=== PATIENT | male | born 1960 | race American Indian/Alaskan Native ===

== ENCOUNTER 2017-12-13 12:48 | Emergency (ER) | payer BC ==
[2017-12-13] MEDS ORDERED: NACL 0.9% 500 ML 500 ML IV ONE (13:52)
[2017-12-13] MEDS ORDERED: ZOFRAN IV ONE ×3 (13:52→18:03)
--- NOTE | 2017-12-13 14:07 | Emergency Department Report ---
ED General Adult HPI - General Chief complaint: Abdominal Pain Stated complaint: PAIN IN ABS AREA Time Seen by Provider: 12/13/17 13:53 Source: patient Mode of arrival: Ambulatory Limitations: No Limitations - History of Present Illness Initial comments: 57-year-old patient with a history of gastroesophageal reflux disease, hypertension, and coronary artery disease presents to the ER after being sent to the ER by his primary care physician secondary to his abdominal pain. Patient initially was evaluated by his PCP on Monday for this abdominal pain and had lab work which showed he was hypernatremic. Patient was reevaluated today and continued to complain of abdominal pain as well as intermittent vomiting as well as diarrhea and was told to come to the emergency department. Patient states that for the past 3 days he's had 4 episodes of vomiting. Patient denies any hematemesis. Patient denies any chest pain or shortness of breath. Patient states that pain is primarily in the epigastric region and does not radiate. - Related Data Home Medications Medication Instructions Recorded Confirmed Last Taken Aspirin [Aspirin BABY CHEW TAB] 81 mg PO QDAY 12/14/14 02/02/16 01/31/16 Clopidogrel [Plavix] 75 mg PO QDAY 12/14/14 02/02/16 01/31/16 ISOSORBIDE MONOnitrate [Imdur ER] 90 mg PO QDAY 12/14/14 02/05/16 02/05/16 04:00 amLODIPine [Norvasc] 10 mg PO DAILY 12/14/14 02/05/16 02/05/16 04:00 AtorvaSTATin [Lipitor] 10 mg PO QDAY 02/02/16 02/05/16 02/05/16 04:00 Diphenoxylate/Atropine [Lomotil] 1 tab PO Q4H PRN 02/02/16 02/02/16 Unknown Lisinopril [Zestril TAB] 10 mg PO QDAY 02/02/16 02/05/16 02/05/16 04:00 Carvedilol [Coreg] 3.125 mg PO BID 02/05/16 02/05/16 02/05/16 04:00 Fish Oil 1 cap PO DAILY 02/05/16 02/05/16 02/04/16 09:00 Previous Rx's Medication Instructions Recorded Last Taken Type oxyCODONE /ACETAMINOPHEN [Percocet 1 tab PO Q6HR PRN #30 tablet 02/05/16 Unknown Rx 5/325] Ciprofloxacin/Ciprofloxa HCl 500 mg PO BID 7 Days #14 tbmp.24hr 12/13/17 Unknown Rx [Ciprofloxacin ER 500 mg Tablet] Famotidine [Pepcid] 20 mg PO BID 30 Days #60 tablet 12/13/17 Unknown Rx HYDROcodone/APAP 5-325 [[place] 1 each PO Q4HR PRN #20 tablet 12/13/17 Unknown Rx 5/325] Ondansetron [Zofran TAB] 4 mg PO Q8HR PRN #20 tablet 12/13/17 Unknown Rx metroNIDAZOLE [Flagyl] 500 mg PO Q12HR 7 Days #14 tab 12/13/17 Unknown Rx Allergies Allergy/AdvReac Type Severity Reaction Status Date / Time No Known Allergies Allergy Unverified 10/30/14 07:23 ED Review of Systems ROS: Stated complaint: PAIN IN ABS AREA Other details as noted in HPI Constitutional: denies: chills, fever Eyes: denies: eye pain, eye discharge, vision change ENT: denies: ear pain, throat pain Respiratory: denies: cough, shortness of breath, wheezing Cardiovascular: denies: chest pain, palpitations Endocrine: no symptoms reported Gastrointestinal: abdominal pain, vomiting, diarrhea Genitourinary: denies: urgency, dysuria Musculoskeletal: denies: back pain, joint swelling, arthralgia Skin: denies: rash, lesions Neurological: denies: headache, weakness, paresthesias Psychiatric: denies: anxiety, depression Hematological/Lymphatic: denies: easy bleeding, easy bruising ED Past Medical Hx - Past Medical History Hx Hypertension: Yes (FOR 30 YRS, DR. WESLEY EVANS- PCP) Hx Heart Attack/AMI: Yes (2004) Hx Congestive Heart Failure: No Hx Diabetes: No Hx GERD: Yes Hx Asthma: No Hx COPD: No Hx HIV: No - Surgical History Hx Coronary Stent: No - Social History Smoking Status: Current Every Day Smoker - Medications Home Medications: Home Medications Medication Instructions Recorded Confirmed Last Taken Type Aspirin [Aspirin BABY CHEW TAB] 81 mg PO QDAY 12/14/14 02/02/16 01/31/16 History Clopidogrel [Plavix] 75 mg PO QDAY 12/14/14 02/02/16 01/31/16 History ISOSORBIDE MONOnitrate [Imdur ER] 90 mg PO QDAY 12/14/14 02/05/16 02/05/16 04: 00 History amLODIPine [Norvasc] 10 mg PO DAILY 12/14/14 02/05/16 02/05/16 04:00 History AtorvaSTATin [Lipitor] 10 mg PO QDAY 02/02/16 02/05/16 02/05/16 04:00 History Diphenoxylate/Atropine [Lomotil] 1 tab PO Q4H PRN 02/02/16 02/02/16 Unknown History Lisinopril [Zestril TAB] 10 mg PO QDAY 02/02/16 02/05/16 02/05/16 04:00 History Carvedilol [Coreg] 3.125 mg PO BID 02/05/16 02/05/16 02/05/16 04:00 History Fish Oil 1 cap PO DAILY 02/05/16 02/05/16 02/04/16 09:00 History oxyCODONE /ACETAMINOPHEN [Percocet 1 tab PO Q6HR PRN #30 tablet 02/05/16 Unknown Rx 5/325] Ciprofloxacin/Ciprofloxa HCl 500 mg PO BID 7 Days #14 tbmp.24hr 12/13/17 Unknown Rx [Ciprofloxacin ER 500 mg Tablet] Famotidine [Pepcid] 20 mg PO BID 30 Days #60 tablet 12/13/17 Unknown Rx HYDROcodone/APAP 5-325 [[place] 1 each PO Q4HR PRN #20 tablet 12/13/17 Unknown Rx 5/325] Ondansetron [Zofran TAB] 4 mg PO Q8HR PRN #20 tablet 12/13/17 Unknown Rx metroNIDAZOLE [Flagyl] 500 mg PO Q12HR 7 Days #14 tab 12/13/17 Unknown Rx ED Physical Exam - General Limitations: No Limitations General appearance: alert, in no apparent distress, other (mildly uncomfortable) - Head Head exam: Present: atraumatic, normocephalic - Eye Eye exam: Present: normal appearance - ENT ENT exam: Present: mucous membranes dry - Neck Neck exam: Present: normal inspection - Respiratory Respiratory exam: Present: normal lung sounds bilaterally. Absent: respiratory distress - Cardiovascular Cardiovascular Exam: Present: normal rhythm, tachycardia. Absent: systolic murmur, diastolic murmur, rubs, gallop - GI/Abdominal GI/Abdominal exam: Present: soft, tenderness (tenderness in epigastric region), normal bowel sounds. Absent: guarding, rebound - Rectal Rectal exam: Present: deferred - Extremities Exam Extremities exam: Present: normal inspection - Back Exam Back exam: Present: normal inspection - Neurological Exam Neurological exam: Present: alert, oriented X3 - Psychiatric Psychiatric exam: Present: normal affect, normal mood - Skin Skin exam: Present: warm, dry, intact, normal color. Absent: rash ED Course Vital Signs 12/13/17 12/13/17 12/13/17 12:53 13:23 13:30 Temperature 99.3 F Pulse Rate 117 H 98 H 91 H Respiratory 14 16 Rate Blood Pressure 134/100 137/99 O2 Sat by Pulse Oximetry 12/13/17 12/13/17 12/13/17 13:45 13:53 14:00 Temperature Pulse Rate 76 78 Respiratory 16 18 12 Rate Blood Pressure 112/74 136/102 O2 Sat by Pulse 97 Oximetry 12/13/17 12/13/17 12/13/17 14:24 14:30 14:45 Temperature Pulse Rate 89 91 H 75 Respiratory 13 14 14 Rate Blood Pressure 136/102 139/98 144/101 O2 Sat by Pulse Oximetry 12/13/17 12/13/17 12/13/17 15:00 15:20 15:30 Temperature Pulse Rate 70 74 78 Respiratory 12 14 Rate Blood Pressure 144/97 144/97 138/95 O2 Sat by Pulse Oximetry 12/13/17 12/13/17 12/13/17 15:45 16:00 16:16 Temperature Pulse Rate 74 73 74 Respiratory 16 8 L 15 Rate Blood Pressure 151/104 146/107 155/100 O2 Sat by Pulse Oximetry 12/13/17 12/13/17 12/13/17 16:30 16:45 17:00 Temperature Pulse Rate 71 76 71 Respiratory 15 16 14 Rate Blood Pressure 145/97 141/87 136/85 O2 Sat by Pulse Oximetry 12/13/17 12/13/17 12/13/17 17:15 17:36 17:45 Temperature Pulse Rate 80 103 H 77 Respiratory 16 13 16 Rate Blood Pressure 134/85 134/85 148/101 O2 Sat by Pulse Oximetry 12/13/17 12/13/17 12/13/17 18:00 18:15 18:30 Temperature Pulse Rate 92 H 79 78 Respiratory 15 16 15 Rate Blood Pressure 149/105 140/89 156/96 O2 Sat by Pulse Oximetry 12/13/17 12/13/17 12/13/17 18:46 19:00 19:15 Temperature Pulse Rate 87 77 77 Respiratory 17 13 18 Rate Blood Pressure 156/96 156/96 158/100 O2 Sat by Pulse Oximetry 12/13/17 19:30 Temperature Pulse Rate 109 H Respiratory 14 Rate Blood Pressure 158/100 O2 Sat by Pulse Oximetry ED Medical Decision Making - Lab Data Result diagrams: 12/13/17 14:33 12/13/17 14:33 Critical care attestation.: If time is entered above; I have spent that time in minutes in the direct care of this critically ill patient, excluding procedure time. ED Disposition Clinical Impression: Abdominal pain, Colitis, Alcoholic hepatitis with ascites Disposition: TO HOME OR SELFCARE Is pt being admited?: No Condition: Stable Instructions: Abdominal Pain (ED), Infectious Colitis (ED) Prescriptions: Ciprofloxacin/Ciprofloxa HCl [Ciprofloxacin ER 500 mg Tablet] 500 mg PO BID 7 Days #14 tbmp.24hr Famotidine [Pepcid] 20 mg PO BID 30 Days #60 tablet HYDROcodone/APAP 5-325 [[place] 5/325] 1 each PO Q4HR PRN #20 tablet PRN Reason: Pain metroNIDAZOLE [Flagyl] 500 mg PO Q12HR 7 Days #14 tab Ondansetron [Zofran TAB] 4 mg PO Q8HR PRN #20 tablet PRN Reason: Vomiting Referrals: PRIMARY CARE, [Primary Care Provider] - 3-5 Days VITALY OATES MD [Staff Physician] - 3-5 Days Forms: Work/School Release Form(ED) Time of Disposition: 19:57 Print Language: ROMANSH
[2017-12-13] MEDS ORDERED: NACL 0.9% 1000 ML 1,000 ML IV ONE (14:40)
[2017-12-13 14:49] LABS: Basophils % (Auto) 0.6 % (0.0-1.8); Eosinophils # (Auto) 0.2 K/mm3 (0.0-0.4); Eosinophils % (Auto) 2.4 % (0.0-4.3); Hematocrit 42.6 % (35.5-45.6); Hemoglobin 14.6 gm/dl (11.8-15.2); Lymphocytes # (Auto) 2.3 K/mm3 (1.2-5.4); Lymphocytes % (Auto) 27.8 % (13.4-35.0); Mean Corpuscular HGB Conc 34 % (32-34); Mean Corpuscular Hemoglobin 33 pg (28-32); Mean Corpuscular Volume 96 fl (84-94); Monocytes # (Auto) 0.5 K/mm3 (0.0-0.8); Monocytes % (Auto) 5.6 % (0.0-7.3); Platelet Count 170 K/mm3 (140-440); Red Blood Count 4.46 M/mm3 (3.65-5.03); Red Cell Distribution Width 14.1 % (13.2-15.2)
--- NOTE | 2017-12-13 14:50 | XRay Report ---
ABDOMEN, 2 views: History: Abdominal pain. There is no evidence of free air beneath the diaphragms. The gas pattern within the abdomen is unremarkable. There is no evidence of bowel dilatation, significant air-fluid levels, or pathologic calcifications. Organ shadows are unremarkable. Cholecystectomy changes are noted. IMPRESSION: Unremarkable abdomen.
[2017-12-13 15:06] LABS: Alanine Aminotransferase 180 units/L (7-56); Albumin 4.2 g/dL (3.9-5); BUN/Creatinine Ratio 14; Bilirubin,Direct 0.5 mg/dL (0-0.2); Blood Urea Nitrogen 10 mg/dL (9-20); Calcium 8.9 mg/dL (8.4-10.2); Hemolysis Index 19
--- NOTE | 2017-12-13 15:10 | XRay Report ---
AP CHEST: HISTORY: Shortness of breath AP view of the chest demonstrates a normal mediastinal and cardiac contour with clear lungs and normal bony and soft tissue structures. IMPRESSION: Unremarkable AP chest.
[2017-12-13] MEDS ORDERED: PEPCID IV ONE (15:25)
--- NOTE | 2017-12-13 15:42 | Cat Scan Report ---
CT ABDOMEN PELVIS WITHOUT CONTRAST: HISTORY: abdominal pain. COMPARISON: none. TECHNIQUE: Helical CT in 1.25mm intervals without IV contrast. Sagittal and coronal reconstructions. FINDINGS: Lung bases: Normal. Liver: Normal. Biliary system: Cholecystectomy. No biliary dilatation. Pancreas: Normal. Spleen: Normal. Kidneys/ureters/bladder: Normal. The prostate gland is mildly enlarged measuring 5.3 cm in diameter. Adrenal glands: Normal. Aorta: Mild diffuse calcifications. No aneurysm. Intestines: No oral contrast was administered which limits this exam. Having said that, there appears to be mild thickening of the ascending and transverse colon which could represent a mild colitis. The distal colon, small bowel loops and stomach are unremarkable. Appendix: Not confidently identified, correlate with surgical history. Pelvic viscera: Normal. Ascites: Trace ascites is noted in the mesentery and right paracolic gutter. Adenopathy: None. Musculoskeletal: Intact. No fracture or suspicious bony lesion. IMPRESSION: Correlate for mild colitis, see above.
[2017-12-13] MEDS ORDERED: MORPHINE IV ONE (18:03)
[2017-12-13] MEDS ORDERED: LEVAQUIN PO ONE (18:04)
[2017-12-13] MEDS ORDERED: FLAGYL PO STA (18:04)
[2017-12-13 19:47] VITALS: BP 158/100
== END 2017-12-13 20:10 | disposition home or self-care (01) ==
LOC: ED 12:48
DX: K52.89 Other specified noninfective gastroenteritis and colitis (principal); K70.11 Alcoholic hepatitis with ascites; I10 Essential (primary) hypertension; I25.2 Old myocardial infarction; K21.9 Gastro-esophageal reflux disease without esophagitis; F17.200 Nicotine dependence, unspecified, uncomplicated; Z79.899 Other long term (current) drug therapy
CPT/HCPCS: 36415; 71045; 74019; 74176; 80048; 80074; 82150; 82550; 84484; 85025; 96361; 96374; 96375; 96376; 99284; J2270; J2405; J7030; J7040

== ENCOUNTER 2018-04-23 21:57 | Emergency (ER) | payer BC ==
[2018-04-23] MEDS ORDERED: ASPIRIN PO ONE (22:23)
[2018-04-23 23:17] LABS: Basophils # (Auto) 0.1 K/mm3 (0.0-0.1); Basophils % (Auto) 0.9 % (0.0-1.8); Eosinophils # (Auto) 0.2 K/mm3 (0.0-0.4); Eosinophils % (Auto) 1.9 % (0.0-4.3); Hemoglobin 13.7 gm/dl (11.8-15.2); Lymphocytes # (Auto) 4.5 K/mm3 (1.2-5.4); Lymphocytes % (Auto) 53.7 % (13.4-35.0); Mean Corpuscular HGB Conc 34 % (32-34); Mean Corpuscular Volume 97 fl (84-94); Monocytes # (Auto) 0.3 K/mm3 (0.0-0.8); Platelet Count 216 K/mm3 (140-440); Red Blood Count 4.23 M/mm3 (3.65-5.03); Red Cell Distribution Width 14.9 % (13.2-15.2)
[2018-04-24 01:05] LABS: BUN/Creatinine Ratio 10; Blood Urea Nitrogen 7 mg/dL (9-20); Calcium 8.9 mg/dL (8.4-10.2); Hemolysis Index 17
[2018-04-24 03:46] VITALS: BP 111/75
== END 2018-04-24 03:47 | disposition left against medical advice (07) ==
LOC: ED 21:57
DX: R07.89 Other chest pain (principal); Z53.21 Procedure and treatment not carried out due to patient leaving prior to being seen by health care provider
CPT/HCPCS: 36415; 80048; 84484; 85025; 93005; 93010

== ENCOUNTER 2018-05-28 09:59 | Inpatient (IN) | payer BC, OTHER ==
[2018-05-28] MEDS ORDERED: NITRO-BID 2% TP ONE (11:01)
[2018-05-28 11:16] LABS: Basophils # (Auto) 0.1 K/mm3 (0.0-0.1); Basophils % (Auto) 0.6 % (0.0-1.8); Eosinophils % (Auto) 0.1 % (0.0-4.3); Hematocrit 40.7 % (35.5-45.6); Hemoglobin 13.9 gm/dl (11.8-15.2); Lymphocytes # (Auto) 1.2 K/mm3 (1.2-5.4); Lymphocytes % (Auto) 13.2 % (13.4-35.0); Mean Corpuscular HGB Conc 34 % (32-34); Mean Corpuscular Volume 99 fl (84-94); Monocytes # (Auto) 0.4 K/mm3 (0.0-0.8); Monocytes % (Auto) 3.9 % (0.0-7.3); Platelet Count 179 K/mm3 (140-440); Red Blood Count 4.11 M/mm3 (3.65-5.03)
--- NOTE | 2018-05-28 11:24 | Emergency Department Report ---
ED Chest Pain HPI - General Chief Complaint: Chest Pain Stated Complaint: CHEST PAIN Time Seen by Provider: 05/28/18 10:38 Source: patient, EMS, old records reviewed Mode of arrival: Stretcher Limitations: No Limitations - History of Present Illness Initial Comments: 57-year-old male with past medical history of GERD, CAD, hypertension, elevated cholesterol, previous cholecystectomy presents complaining of chest pain 2 days. Patient states that paced S his left shoulder and radiates to his left and mid chest. Pain was constant last night but now more intermittent. He has intermittent sharp pain followed by a throbbing sensation. Positive associated shortness of breath with vomiting today. Patient is currently in police custody has been incarcerated for 2 days. He states the past 2 days he has not had any of his medication including his blood pressure medication, cholesterol medication, aspirin, and Plavix but prior to incarceration he was compliant with his medications. His primary care doctor is Dr. Evans, he does not currently see a computer peripheral equipment operator but has been evaluated by [facility] in the past. As per medical record he had a cardiac cath here in November 2014 that showed ejection fraction of 45-50%, and mild irregularities with no significant CAD. Risk factor modification was recommended. Patient denies having a cardiac cath since then. Patient received nitroglycerin and aspirin prior to arrival. Severity scale (0 -10): 6 - Related Data Home Medications Medication Instructions Recorded Confirmed Last Taken Aspirin [Aspirin BABY CHEW TAB] 81 mg PO QDAY 12/14/14 05/28/18 01/31/16 Clopidogrel [Plavix] 75 mg PO QDAY 12/14/14 05/28/18 01/31/16 ISOSORBIDE MONOnitrate [Imdur ER] 120 mg PO QDAY 12/14/14 05/28/18 02/05/16 04:00 amLODIPine [Norvasc] 10 mg PO DAILY 12/14/14 05/28/18 02/05/16 04:00 Nitroglycerin [Nitrostat] 0.4 mg SL Q5M PRN 05/28/18 05/28/18 Unknown Rosuvastatin Calcium [Crestor] 40 mg PO DAILY 05/28/18 05/28/18 Unknown dilTIAZem CD [Cardizem Cd] 240 mg PO QDAY 05/28/18 05/28/18 Unknown Allergies Allergy/AdvReac Type Severity Reaction Status Date / Time No Known Allergies Allergy Verified 04/23/18 22:22 Heart Score - HEART Score History: Moderately suspicious EKG: Non-specific Age: 45-65 Risk factors: > 3 risk factors or hx of atherosclerotic disease Troponin: 1-3x normal limit HEART Score: 6 ED Review of Systems ROS: Stated complaint: CHEST PAIN Other details as noted in HPI Comment: All other systems reviewed and negative ED Past Medical Hx - Past Medical History Previous Medical History?: Yes Hx Hypertension: Yes (FOR 30 YRS, DR. WESLEY EVANS- PCP) Hx Heart Attack/AMI: Yes (2004) Hx Congestive Heart Failure: No Hx Diabetes: No Hx GERD: Yes Hx Asthma: No Hx COPD: No Hx HIV: No Additional medical history: high cholestrol. heart spasms - Surgical History Past Surgical History?: Yes Hx Coronary Stent: No Hx Cholecystectomy: Yes - Social History Smoking Status: Current Every Day Smoker Substance Use Type: Alcohol - Medications Home Medications: Home Medications Medication Instructions Recorded Confirmed Last Taken Type Aspirin [Aspirin BABY CHEW TAB] 81 mg PO QDAY 12/14/14 05/28/18 01/31/16 History Clopidogrel [Plavix] 75 mg PO QDAY 12/14/14 05/28/18 01/31/16 History ISOSORBIDE MONOnitrate [Imdur ER] 120 mg PO QDAY 12/14/14 05/28/18 02/05/16 04:00 History amLODIPine [Norvasc] 10 mg PO DAILY 12/14/14 05/28/18 02/05/16 04:00 History Nitroglycerin [Nitrostat] 0.4 mg SL Q5M PRN 05/28/18 05/28/18 Unknown History Rosuvastatin Calcium [Crestor] 40 mg PO DAILY 05/28/18 05/28/18 Unknown History dilTIAZem CD [Cardizem Cd] 240 mg PO QDAY 05/28/18 05/28/18 Unknown History ED Physical Exam - General Limitations: No Limitations - Other Other exam information: General: No limitations, patient is alert in no acute distress Head exam: Atraumatic, normocephalic Eyes exam: Possibly mildly icteric sclerae ENT: Moist mucous membrane, normal oropharynx Neck exam: Normal inspection, full range of motion, no meningismus nontender Respiratory exam: Clear to auscultation bilateral, no wheezes, rales, crackles Cardiovascular: Normal rate and rhythm, chest wall nontender Abdomen: Soft, nondistended, and nontender, with normal bowel sounds, no rebound, or guarding Extremity: Full range of motion normal inspection no deformity, no calf tenderness or edema Back: Normal Inspection, full range of motion, no tenderness Neurologic: Alert, oriented x3, cranial nerves intact, no motor or sensory deficit Psychiatric: normal affect, normal mood Skin: Warm, dry, intact ED Course Vital Signs 05/28/18 05/28/18 05/28/18 10:08 10:15 10:26 Temperature 98.2 F Pulse Rate 69 105 H Respiratory 14 18 Rate Blood Pressure 144/97 149/102 O2 Sat by Pulse 98 100 98 Oximetry 05/28/18 05/28/18 05/28/18 10:30 10:45 11:00 Temperature Pulse Rate 89 94 H 92 H Respiratory 19 19 16 Rate Blood Pressure 149/107 155/113 161/112 O2 Sat by Pulse 97 99 99 Oximetry 05/28/18 05/28/18 05/28/18 11:15 11:30 11:45 Temperature Pulse Rate 97 H 95 H 97 H Respiratory 19 21 19 Rate Blood Pressure 163/115 160/109 161/115 O2 Sat by Pulse 96 Oximetry 05/28/18 05/28/18 05/28/18 11:49 12:00 12:15 Temperature Pulse Rate 101 H 108 H Respiratory 16 15 Rate Blood Pressure 161/105 161/116 157/108 O2 Sat by Pulse 96 98 Oximetry 05/28/18 05/28/18 05/28/18 12:30 12:45 13:00 Temperature Pulse Rate 101 H 104 H 100 H Respiratory 15 15 18 Rate Blood Pressure 154/105 157/100 148/102 O2 Sat by Pulse 99 99 95 Oximetry 05/28/18 13:15 Temperature Pulse Rate 99 H Respiratory 19 Rate Blood Pressure 157/107 O2 Sat by Pulse 94 Oximetry - Reevaluation(s) Reevaluation #1: 05/28/18 14:44 Patient is chest pain-free with nitroglycerin drip. Patient is also a heparin drip. Patient's repeat troponin shows increased and repeat EKG is unchanged compared to previous. Dr. Garcia plans to take patient to the [facility] - Consultations Consultation #1: 05/28/18 12:00 [facility] white consulted 05/28/18 14:25 case d/w Dr Harris and he is aware of the pt LUISITO score - Luisito Score Age > 65: (0) No Aspirin use within the Past 7 Days: (1) Yes 3 or more CAD Risk Factors: (1) Yes 2 or more Angina events in past 24 hrs: (1) Yes Known CAD with more than 50% Stenosis: (1) Yes Elevated Cardiac Markers: (1) Yes ST Deviation Greater than 0.5mm: (0) No LUISITO Score: 5 ED Medical Decision Making - Lab Data Result diagrams: 05/28/18 11:04 05/28/18 11:04 Lab Results 05/28/18 05/28/18 05/28/18 Range/Units 11:04 11:04 11:04 WBC 9.4 (4.5-11.0) K/mm3 RBC 4.11 (3.65-5.03) M/mm3 Hgb 13.9 (11.8-15.2) gm/dl Hct 40.7 (35.5-45.6) % MCV 99 H (84-94) fl MCH 34 H (28-32) pg MCHC 34 (32-34) % RDW 15.0 (13.2-15.2) % Plt Count 179 (140-440) K/mm3 Lymph % (Auto) 13.2 L (13.4-35.0) % [place] % (Auto) 3.9 (0.0-7.3) % Eos % (Auto) 0.1 (0.0-4.3) % Baso % (Auto) 0.6 (0.0-1.8) % Lymph # 1.2 (1.2-5.4) K/mm3 [place] # 0.4 (0.0-0.8) K/mm3 Eos # 0.0 (0.0-0.4) K/mm3 Baso # 0.1 (0.0-0.1) K/mm3 Seg Neutrophils % 82.2 H (40.0-70.0) % Seg Neutrophils # 7.7 (1.8-7.7) K/mm3 PT 13.8 (12.2-14.9) Sec. INR 1.00 (0.87-1.13) Sodium 140 (137-145) mmol/L Potassium 4.0 (3.6-5.0) mmol/L Chloride 99.2 (98-107) mmol/L Carbon Dioxide 21 L (22-30) mmol/L Anion Gap 24 mmol/L BUN 7 L (9-20) mg/dL Creatinine 0.6 L (0.8-1.5) mg/dL Estimated GFR > 60 ml/min BUN/Creatinine Ratio 12 % Glucose 86 (75-100) mg/dL Calcium 9.2 (8.4-10.2) mg/dL Total Creatine Kinase (55-170) units/L CK-MB (CK-2) (0.0-4.0) ng/mL CK-MB (CK-2) Rel Index (0-4) Troponin T 1.710 H* (0.00-0.029) ng/mL Triglycerides 295 H (2-149) mg/dL Cholesterol 140 (50-199) mg/dL LDL Cholesterol Direct 61 (50-130) mg/dL HDL Cholesterol 43 (40-59) mg/dL Cholesterol/HDL Ratio 3.25 % 03/04/19 Range/Units 11:04 WBC (4.5-11.0) K/mm3 RBC (3.65-5.03) M/mm3 Hgb (11.8-15.2) gm/dl Hct (35.5-45.6) % MCV (84-94) fl MCH (28-32) pg MCHC (32-34) % RDW (13.2-15.2) % Plt Count (140-440) K/mm3 Lymph % (Auto) (13.4-35.0) % [place] % (Auto) (0.0-7.3) % Eos % (Auto) (0.0-4.3) % Baso % (Auto) (0.0-1.8) % Lymph # (1.2-5.4) K/mm3 [place] # (0.0-0.8) K/mm3 Eos # (0.0-0.4) K/mm3 Baso # (0.0-0.1) K/mm3 Seg Neutrophils % (40.0-70.0) % Seg Neutrophils # (1.8-7.7) K/mm3 PT (12.2-14.9) Sec. INR (0.87-1.13) Sodium (137-145) mmol/L Potassium (3.6-5.0) mmol/L Chloride (98-107) mmol/L Carbon Dioxide (22-30) mmol/L Anion Gap mmol/L BUN (9-20) mg/dL Creatinine (0.8-1.5) mg/dL Estimated GFR ml/min BUN/Creatinine Ratio % Glucose (75-100) mg/dL Calcium (8.4-10.2) mg/dL Total Creatine Kinase 907 H (55-170) units/L CK-MB (CK-2) 160.0 H (0.0-4.0) ng/mL CK-MB (CK-2) Rel Index 17.6 H (0-4) Troponin T (0.00-0.029) ng/mL Triglycerides (2-149) mg/dL Cholesterol (50-199) mg/dL LDL Cholesterol Direct (50-130) mg/dL HDL Cholesterol (40-59) mg/dL Cholesterol/HDL Ratio % - EKG Data -: EKG Interpreted by [facility] EKG shows normal: sinus rhythm, axis (qrs 13), QRS complexes (qrsd 81), ST-T waves (no stemi) Rate: normal (81) - EKG Data When compared to previous EKG there are: no significant change 05/28/18 14:44 repeat ekg does not show any acute changes - Radiology Data Radiology results: report reviewed AP CHEST: HISTORY: chest pain AP view of the chest demonstrates a normal mediastinal and cardiac contour with clear lungs and normal bony and soft tissue structures. IMPRESSION: Unremarkable AP chest. - Medical Decision Making Patient's EKG is similar to previous however, patient has an elevated troponin and has been unable to take his medications 2 days due to incarceration. Elevated troponin suggestive of NSTEMI. Cardiology informed. Heparin drip ordered. Nitroglycerin paste change to nitroglycerin drip for more accurate titration. Morphine prn pain. Hospitalist to admit. CCU orders placed - Differential Diagnosis MA, PE, dissection, unstable angina Critical Care Time: Yes Critical care time in (mins) excluding proc time.: 35 Critical care attestation.: If time is entered above; I have spent that time in minutes in the direct care of this critically ill patient, excluding procedure time. ED Disposition Clinical Impression: Non-STEMI (non-ST elevated myocardial infarction), Noncompliance with medication regimen, HTN (hypertension), Hyperlipemia, Chest pain Disposition: DC-09 OP ADMIT IP TO THIS HOSP Is pt being admited?: Yes Condition: Stable Time of Disposition: 12:03 (DR Wiley/hosp)
[2018-05-28 11:32] LABS: BUN/Creatinine Ratio 12; Blood Urea Nitrogen 7 mg/dL (9-20); Calcium 9.2 mg/dL (8.4-10.2); Hemolysis Index 12
[2018-05-28] MEDS ORDERED: HEPARIN 10,000 UNITS/10 ML IV ONE (11:49)
[2018-05-28] MEDS ORDERED: MORPHINE IV PRN (11:54)
[2018-05-28 11:55] LABS: Chol/HDL Ratio 3.25 %; HDL Cholesterol 43 mg/dL (40-59); LDL Cholesterol,Direct 61 mg/dL (50-130)
--- NOTE | 2018-05-28 12:02 | XRay Report ---
AP CHEST: HISTORY: chest pain AP view of the chest demonstrates a normal mediastinal and cardiac contour with clear lungs and normal bony and soft tissue structures. IMPRESSION: Unremarkable AP chest.
[2018-05-28] MEDS: TRIDIL DRIP 50MG/250ML 50 MG/250 ML BOTTLE IV SCH ×2 (12:14→15:55)
[2018-05-28] MEDS: HEPARIN/ 0.45% NACL-25,000 UNIT/500 ML 25,000 UNIT/500 ML BAG IV SCH ×2 (12:15→15:15)
[2018-05-28] MEDS ORDERED: XYLOCAINE 2% INFILTRATI ONE (15:02)
[2018-05-28] MEDS ORDERED: CALAN ONE (15:02)
[2018-05-28] MEDS ORDERED: HEPARIN/NS 5000 UNIT/500ML(CATH LAB) 1,000 ML IR ONE (15:02)
[2018-05-28] MEDS ORDERED: NITROGLYCERIN SYRINGE 3 ML ONE (15:03)
[2018-05-28] MEDS ORDERED: ECOTRIN PO ONE (15:26)
[2018-05-28] MEDS ORDERED: SUBLIMAZE ONE (15:48)
[2018-05-28] MEDS ORDERED: VERSED ONE (15:48)
[2018-05-28 15:55] LABS: Amphetamine Screen,Urine PRESUMPTIVE NEGATIVE; Benzodiazepines Screen,Urine PRESUMPTIVE NEGATIVE; Cannabinoid Screen,Urine PRESUMPTIVE NEGATIVE; Cocaine Screen,Urine PRESUMPTIVE NEGATIVE; Methadone Screen,Urine PRESUMPTIVE NEGATIVE; Opiate Screen,Urine PRESUMPTIVE NEGATIVE
[2018-05-28] MEDS: HEPARIN 10,000 UNITS/10 ML ONE ×2 (15:58→16:09)
[2018-05-28] MEDS ORDERED: ECOTRIN PO SCH (16:00)
[2018-05-28] MEDS ORDERED: NACL 0.9% 500 ML 500 ML ONE (16:02)
[2018-05-28] MEDS ORDERED: HEPARIN 10,000 UNITS/10 ML ONE (16:23)
[2018-05-28] MEDS ORDERED: ALUM-MAG HYDROX-SIMETH 200-200-20MG/5ML ONE (16:23)
[2018-05-28] MEDS ORDERED: PLAVIX ONE (16:23)
[2018-05-28] MEDS ORDERED: ULTRAM PO PRN (16:43)
--- NOTE | 2018-05-28 16:57 | Cardiac Catherization Report ---
ATTENDING PHYSICIAN: Levy Garcia MD PROCEDURES: 1. Left heart catheterization. 2. PCI of the LAD with placement of a 2.5 x 15 Xience drug-eluting stent and left ventriculogram via hand injection. INDICATIONS: The patient is a 57-year-old gentleman, who presented to the Emergency Room with ongoing chest pain and increasing troponin and subsequently diagnosed with non-ST elevation myocardial infarction. Given that the patient has been having ongoing chest pain despite treatment with nitroglycerin, it was decided to take the patient to the cardiac catheterization lab for further evaluation. ESTIMATED BLOOD LOSS: Less than 30 mL. ESTIMATED CONTRAST USE: 150 mL. PROCEDURE START TIME: 15:53. PROCEDURE END TIME: 16:19. COMPLICATIONS: None. ANESTHESIA: With IV Versed and fentanyl for IV conscious sedation. PROCEDURE IN DETAIL: The patient was brought to the cardiac quality assurance qa lab analyst urgently. The patient was prepped and draped in usual sterile fashion. A 2 mL of 1% lidocaine was injected around the right radial artery. A 6-Khmer sheath placed into the right radial artery via modified Seldinger technique. Next, a Gay catheter was advanced over the wire and engaged into left main and the right coronary arteries and angiography was performed in multiple views. A Gay catheter was then removed over the wire and a pigtail catheter was advanced over the wire across the aortic valve and into the left ventricle. Left ventriculogram was performed via hand injection. Pullback pressure was then measured across the aortic valve. RESULTS: Left main coronary artery is a large caliber vessel with no significant disease. Left main coronary artery bifurcates into left anterior descending and left circumflex coronary arteries. Left anterior descending is a large to moderate caliber vessel that shows luminal irregularities throughout. There is a 40% lesion in the midsegment followed by a 70% lesion in the distal aspect of the mid segment. The left circumflex coronary artery is a moderate to small caliber vessel with luminal irregularities without significant stenosis. The right coronary artery is a large caliber vessel with luminal irregularities without significant stenosis. Left ventriculogram shows ejection fraction of 50-55%. Left ventricular pressure measures 146/2 mmHg. Left ventricular end-diastolic pressure measures 10 mmHg. Aortic pressure measures 125/89 mmHg. Intervention, an EBU 3.5 guide catheter was advanced over the wire and engaged into left main coronary artery. The 70% distal aspect of the mid LAD lesion was crossed utilizing a BMW wire, which was anchored in the distal vessel. The 2.5 x 15 mm Xience drug-eluting stent was advanced to the lesion and deployed at 10 atmospheres for 40 seconds. The stent balloon was then removed. Angiography was performed in multiple views. The stent was seen to be well opposed. Then, the BMW wire was removed. Final angiography showed no dissection and a well-opposed stent and the distal aspect of the mid segment of the LAD. Initial angiography demonstrated 70% stenosis with LUISITO 3 flow. Final angiography demonstrated 0% residual stenosis and LUISITO 3 flow throughout. CONCLUSIONS: Single vessel coronary artery disease, status post successful PCI of the LAD with placement of a 2.5 x 15 mm Xience drug-eluting stent. Left ventriculogram shows normal LV function with EF 50-55%. PLAN: The patient will be admitted to the hospital. The patient should continue aspirin, statin, beta alvarez and Plavix for a duration of at least 1 year. [facility]# [id number] /CLEMENT
[2018-05-28] MEDS ORDERED: NACL 0.9% 1000 ML 1,000 ML ONE (17:30)
[2018-05-28] MEDS: NACL 0.9% 1000 ML 1,000 ML IV SCH (17:37)
[2018-05-28] MEDS ORDERED: NITROSTAT SL PRN (20:48)
[2018-05-28] MEDS ORDERED: ZOFRAN IV PRN (20:51)
[2018-05-28] MEDS ORDERED: DILAUDID IV PRN (20:51)
[2018-05-28] MEDS ORDERED: TYLENOL PO PRN (20:51)
[2018-05-28] MEDS ORDERED: SODIUM CHLORIDE FLUSH SYRINGE 10 ML IV PRN (20:51)
[2018-05-28] MEDS ORDERED: NORVASC PO SCH (21:00)
[2018-05-28] MEDS ORDERED: NON-FORMULARY (Rosuvastatin Calcium [Crestor] 40 MG) PO SCH (21:00)
[2018-05-28] MEDS ORDERED: BABY ASPIRIN PO SCH (21:00)
[2018-05-28] MEDS ORDERED: CARDIZEM CD PO SCH (21:00)
[2018-05-28] MEDS ORDERED: PLAVIX PO SCH (21:00)
[2018-05-28] MEDS: IMDUR PO SCH (22:19)
[2018-05-28] MEDS: PEPCID PO SCH (22:20)
[2018-05-28] MEDS: LOPRESSOR PO SCH (22:20)
--- NOTE | 2018-05-28 22:21 | Consultation ---
REASON FOR CONSULTATION: Non-ST elevation myocardial infarction. HISTORY OF PRESENT ILLNESS: The patient is a 57-year-old male with past medical history of GERD, coronary artery disease, hypertension, and elevated cholesterol, who is presenting with complaint of chest pain present for 2 days. The patient states that the patient's chest pain is substernal, radiating to the left shoulder and the left arm. The patient has been constant last night, but is now more intermittent. The patient has associated shortness of breath with vomiting. The patient's EKG shows sinus rhythm with nonspecific ST-T wave changes. The patient's troponin initially was 1.7 and increased to 3.2. Therefore, it was decided to take the patient to the cardiac sleep lab technologist urgently. PAST MEDICAL HISTORY: Gastroesophageal reflux disease, nonsignificant coronary artery disease with previous catheterization, but no previous stents, hypertension, and hyperlipidemia. PAST SURGICAL HISTORY: Cholecystectomy. SOCIAL HISTORY: The patient currently smokes. FAMILY HISTORY: The patient denies any alcohol or IV drug abuse. PHYSICAL EXAMINATION: HEENT: Pupils equal, round, reactive to light and accommodation. Extraocular musculature intact. Normocephalic, atraumatic. NECK: Supple. No lymphadenopathy. LUNGS: Clear to auscultation bilaterally. CARDIOVASCULAR: Regular rate and rhythm. Normal S1, S2. ABDOMEN: Soft, nontender, nondistended. Positive bowel sounds in all 4 quadrants. EXTREMITIES: No cyanosis, clubbing, or edema. LABORATORY DATA: Reviewed. Renal function is normal. EKG as above. ASSESSMENT AND PLAN: 1. Non-ST elevation myocardial infarction. 2. Hypertension. 3. Hyperlipidemia. 4. Gastroesophageal reflux disease. PLAN: Plan for urgent cardiac catheterization. The patient started on beta-alvarez, aspirin, statin, and heparin as well as a nitro drip in the Emergency Room. JOB# [id number] MR/NTS
[2018-05-28] MEDS: SODIUM CHLORIDE FLUSH SYRINGE 10 ML IV SCH (22:27)
[2018-05-29 05:09] LABS: Basophils % (Auto) 0.5 % (0.0-1.8); Eosinophils # (Auto) 0.1 K/mm3 (0.0-0.4); Eosinophils % (Auto) 1.7 % (0.0-4.3); Hematocrit 37.7 % (35.5-45.6); Hemoglobin 13.2 gm/dl (11.8-15.2); Lymphocytes # (Auto) 2.9 K/mm3 (1.2-5.4); Lymphocytes % (Auto) 35.7 % (13.4-35.0); Mean Corpuscular HGB Conc 35 % (32-34); Mean Corpuscular Volume 98 fl (84-94); Monocytes # (Auto) 0.8 K/mm3 (0.0-0.8); Monocytes % (Auto) 9.5 % (0.0-7.3); Platelet Count 143 K/mm3 (140-440); Red Blood Count 3.84 M/mm3 (3.65-5.03); Red Cell Distribution Width 14.9 % (13.2-15.2)
[2018-05-29 05:31] LABS: Alanine Aminotransferase 39 units/L (7-56); Albumin 3.5 g/dL (3.9-5); BUN/Creatinine Ratio 8; Blood Urea Nitrogen 4 mg/dL (9-20); Calcium 8.5 mg/dL (8.4-10.2); Hemolysis Index 12
--- NOTE | 2018-05-29 06:18 | Event Note ---
Date: 05/28/18 See in reports NSTEMI HTN HLD
[2018-05-29] MEDS: NORCO 5/325 PO PRN ×2 (06:53→21:32)
[2018-05-29] MEDS: NACL 0.9% 1000 ML 1,000 ML IV SCH (06:54)
--- NOTE | 2018-05-29 06:56 | History and Physical Report ---
CHIEF COMPLAINT: Persistent chest pain for the last 2 days. HISTORY OF PRESENT ILLNESS: A 57-year-old male with history of coronary artery disease in the past and comes in for severe chest pain for the last 2 days. The patient is diaphoretic. Chest pain radiates to the left shoulder. Chest pain is about 10 on a scale of 1-10, intermittent and severe throbbing sensation. Vomited x 1 today. The patient is in police custody. The patient is not taking any of his blood pressure medications. The patient was seen by [facility] in the past. Had a cardiac cath in 2014, which showed ejection fraction of 45% to 50% and mild irregularities with no significant coronary artery disease. The patient's chest pain is severe. PAST MEDICAL HISTORY: Significant for coronary artery disease, hypertension, and hyperlipidemia. CURRENT MEDICATIONS: Include Plavix 75 mg once a day, Imdur 120 mg once a day, amlodipine 10 mg once a day, Crestor 40 mg once a day, diltiazem 240 mg once a day. PAST SURGICAL HISTORY: Cholecystectomy. No stents. SOCIAL HISTORY: Smokes about half pack a day. FAMILY HISTORY: Hypertension. REVIEW OF SYSTEMS: Significant for severe left-sided chest pain with radiation to the left shoulder and left arm, associated with diaphoresis and vomiting x 1. PHYSICAL EXAMINATION: GENERAL: Middle-aged male, cooperative during examination. VITAL SIGNS: Blood pressure is 149/107, temperature is 98.2, pulse is 69, respirations 14. HEENT: Unremarkable. Pupils equal and reactive. NECK: Supple, no lymphadenopathy, no thyromegaly. LUNGS: Clear to auscultation and percussion. Good air entry. CARDIOVASCULAR SYSTEM: S1, S2 heard. No gallop, no murmur, no rub. Apical impulse in left fifth intercostal space in midclavicular line. ABDOMEN: Soft and benign. No hepatosplenomegaly. No guarding, no rigidity. Hernial orifices are normal. EXTREMITIES: Good pedal pulses. No pedal edema. CENTRAL NERVOUS SYSTEM: Alert and oriented x 4, nonfocal exam. LABORATORY DATA: Labs are significant for elevated troponin of 1.71, elevated creatine kinase of 907 and CK-MB of 150 with a CK-MB relative index of 17.6. Second troponin was 3.180. CBC was normal. Electrolytes are normal. BUN and creatinine 7 and 0.6. Toxicology was negative. DIAGNOSTIC DATA: EKG shows heart rate of 81 per minute, no acute ST-T wave changes, LVH present. Ventricular premature complex present. Tall T waves in V2 and V3. Chest x-ray was normal. No acute findings. ASSESSMENT AND PLAN: 1. Non-ST elevation myocardial infarction. The patient initiated on IV heparin and IV nitroglycerin drip. The patient is being taken to cardiac coreroom foundry laborer for possible stent placement. Troponins are highly elevated. Dr. Garcia was informed. 2. Hypertension, continue antihypertensives. 3. Coronary artery disease, continue Plavix. Continue to monitor the patient. The patient to be admitted to ICU. 4. Deep venous thrombosis prophylaxis, the patient already on heparin. May change to Lovenox once the heparin drip was discontinued. Critical care time 36 minutes. In summary, the patient has a non-STEMI and hypertension, coronary artery disease and hyperlipidemia. JOB# [id number] GWENDOLYN/CLEMENT KAUR
--- NOTE | 2018-05-29 08:33 | Consultation ---
History of Present Illness Consult date: 05/29/18 Requesting physician: OLIVIA OWENS Reason for consult: other (NSTEMI, s/p LAD stent needing critical care monitoring) History of present illness: 57-year-old male with past medical history of GERD, CAD, hypertension, elevated cholesterol, previous cholecystectomy presented with chest pain, had NSTEMI s/p LAD stent, radial approach. Admitted to the ICU on a nitroglycerin infusion post PCI. Seen and examined. Vitals, labs, medications, chart and imaging reviewed. Denies any chest pain at this time. No shortness of breath, no fevers or chills. Off nitroglycerine infusion with adequate blood pressure. Smokes 1/2PPD for over 20years. - Past Medical History Previous Medical History?: Yes Hx Hypertension: Yes (FOR 30 YRS, DR. WESLEY EVANS- PCP) Hx Heart Attack/AMI: Yes (2004) Hx Congestive Heart Failure: No Hx Diabetes: No Hx GERD: Yes Hx Asthma: No Hx COPD: No Hx HIV: No Additional medical history: high cholestrol. heart spasms - Surgical History Past Surgical History?: Yes Hx Coronary Stent: No Hx Cholecystectomy: Yes - Social History Smoking Status: Current Every Day Smoker Substance Use Type: Alcohol Medications and Allergies Allergies Allergy/AdvReac Type Severity Reaction Status Date / Time No Known Allergies Allergy Verified 04/23/18 22:22 Home Medications Medication Instructions Recorded Confirmed Last Taken Type Aspirin [Aspirin BABY CHEW TAB] 81 mg PO QDAY 12/14/14 05/28/18 01/31/16 History Clopidogrel [Plavix] 75 mg PO QDAY 12/14/14 05/28/18 01/31/16 History ISOSORBIDE MONOnitrate [Imdur ER] 120 mg PO QDAY 12/14/14 05/28/18 02/05/16 04:00 History amLODIPine [Norvasc] 10 mg PO DAILY 12/14/14 05/28/18 02/05/16 04:00 History Nitroglycerin [Nitrostat] 0.4 mg SL Q5M PRN 05/28/18 05/28/18 Unknown History Rosuvastatin Calcium [Crestor] 40 mg PO DAILY 05/28/18 05/28/18 Unknown History dilTIAZem CD [Cardizem Cd] 240 mg PO QDAY 05/28/18 05/28/18 Unknown History Active Meds: Active Medications Acetaminophen (Tylenol) 650 mg PO Q4H PRN PRN Reason: Pain MILD(1-3)/Fever >100.5/ROMERO Acetaminophen/Hydrocodone Bitart (Brant 5/325) 1 each PO Q4H PRN PRN Reason: Pain, Moderate (4-6) Last Admin: 05/29/18 06:53 Dose: 1 each Documented by: Aspirin (Baby Aspirin) 81 mg PO QDAY [facility] Atorvastatin Calcium (Lipitor) 80 mg PO DAILY [facility] Clopidogrel Bisulfate (Plavix) 75 mg PO QDAY [facility] Famotidine (Pepcid) 20 mg PO BID [facility] Last Admin: 05/28/18 22:20 Dose: 20 mg Documented by: Hydromorphone HCl (Dilaudid) 0.5 mg IV Q3H PRN PRN Reason: Pain , Severe (7-10) Nitroglycerin/Dextrose (Tridil Drip 50mg/250ml) 50 mg in 250 mls @ 3 mls/hr IV TITR [facility]; Protocol Last Titration: 05/29/18 00:22 Dose: 0 mcg/min, 0 mls/hr Documented by: Sodium Chloride (Nacl 0.9% 1000 Ml) 1,000 mls @ 75 mls/hr IV DIRECT [facility] Last Admin: 05/29/18 06:54 Dose: 75 mls/hr Documented by: Isosorbide Mononitrate (Imdur) 120 mg PO QDAY [facility] Last Admin: 05/28/18 22:19 Dose: 120 mg Documented by: Lisinopril (Zestril) 10 mg PO QDAY [facility] Metoprolol Tartrate (Lopressor) 12.5 mg PO BID [facility] Last Admin: 05/28/18 22:20 Dose: 12.5 mg Documented by: Morphine Sulfate (Morphine) 4 mg IV Q4HR PRN PRN Reason: Pain , Severe (7-10) Last Admin: 05/28/18 12:15 Dose: 4 mg Documented by: Nitroglycerin (Nitrostat) 0.4 mg SL Q5M PRN PRN Reason: Chest Pain Ondansetron HCl (Zofran) 4 mg IV Q8H PRN PRN Reason: Nausea And Vomiting Sodium Chloride (Sodium Chloride Flush Syringe 10 Ml) 10 ml IV BID [facility] Last Admin: 05/28/18 22:27 Dose: 10 ml Documented by: Sodium Chloride (Sodium Chloride Flush Syringe 10 Ml) 10 ml IV PRN PRN PRN Reason: LINE FLUSH Tramadol HCl (Ultram) 50 mg PO Q4H PRN PRN Reason: Pain, Mild (1-3) Review of Systems Constitutional: no weight loss, no weight gain, no fever, no chills, no sweats, no night sweats Cardiovascular: no chest pain, no rapid/irregular heart beat, no syncope, no lightheadedness, no shortness of breath Respiratory: cough, no cough with sputum, no hemoptysis, no shortness of breath, no dyspnea on exertion, no congestion Gastrointestinal: no abdominal pain, no nausea, no diarrhea, no coffee ground emesis Genitourinary Male: no dysuria, no hematuria, no flank pain, no discharge, no nocturia, no incontinence Neurological: no transient paralysis, no weakness, no parathesias, no seizures, no syncope, no tremors Physical Examination Vital signs: Vital Signs Pulse Ox 98 05/28/18 10:08 General appearance: no acute distress, alert, other (atraumatic, normocephalic) Eyes: non-icteric ENT: oropharynx moist, other Neck: supple, no lymphadenopathy, no JVD Effort: normal Ascultation: Bilateral: clear, diminished breath sounds Cardiovascular: regular rate and rhythm, other (S1,S2, no murmurs, gallops or r ubs) Integumentary: normal Extremities: no cyanosis, no edema, pink and warm, pulses normal, other (In foot cuffs) Musculoskeletal: no deformities normal mental status, pupils equal and round, CN II-XII normal, motor strength normal and mood appropriate, affect normal Results - Laboratory Findings CBC and BMP: 05/29/18 04:03 05/29/18 04:03 PT/INR, D-dimer PT 13.8 Sec. (12.2-14.9) 05/28/18 11:04 INR 1.00 (0.87-1.13) 05/28/18 11:04 Abnormal lab findings: Abnormal Labs 05/28/18 05/28/18 05/28/18 11:04 11:04 11:04 MCV 99 H MCH 34 H MCHC Lymph % (Auto) 13.2 L [place] % (Auto) Seg Neutrophils % 82.2 H Activated Clotting Time Potassium Carbon Dioxide 21 L BUN 7 L Creatinine 0.6 L Glucose Total Bilirubin AST Total Creatine Kinase 907 H CK-MB (CK-2) 160.0 H CK-MB (CK-2) Rel Index 17.6 H Troponin T 1.710 H* Total Protein Albumin Triglycerides 295 H 05/28/18 05/28/18 05/28/18 13:56 16:28 19:50 MCV MCH MCHC Lymph % (Auto) [place] % (Auto) Seg Neutrophils % Activated Clotting Time 263 H Potassium Carbon Dioxide BUN Creatinine Glucose Total Bilirubin AST Total Creatine Kinase CK-MB (CK-2) CK-MB (CK-2) Rel Index Troponin T 3.180 H* D 3.260 H* Total Protein Albumin Triglycerides 05/29/18 05/29/18 04:03 04:03 MCV 98 H MCH 34 H MCHC 35 H Lymph % (Auto) 35.7 H [place] % (Auto) 9.5 H Seg Neutrophils % Activated Clotting Time Potassium 3.2 L Carbon Dioxide BUN 4 L Creatinine 0.5 L Glucose 117 H Total Bilirubin 1.80 H AST 157 H Total Creatine Kinase CK-MB (CK-2) CK-MB (CK-2) Rel Index Troponin T Total Protein 5.8 L Albumin 3.5 L Triglycerides - Diagnostic Findings Chest x-ray: image reviewed (No acute cardiac or pulmonary disease) Assessment and Plan NSTEMI s/p PCI with LAD stent HTN Tobacco use disorder, 10 pack year history GERD Hyperlipidemia Hypokalemia -Continue cardioprotective measures- Plavix, statin, aspirin, beta alvarez -Smoking cessation counselling done at the bedside for over 5 minutes -Ambulate and increase activity -Stop IVFs -Nicotine withdrawal precautions -Resume chronic home medications -Lifestyle modifications, counselling -Replace potassium, keep it at 4mEq OK to transfer out of the ICU to telemetry. Thank you for this consult, we will continue to follow the patient
[2018-05-29] MEDS ORDERED: K-DUR PO ONE (09:00)
--- NOTE | 2018-05-29 09:20 | Progress Note ---
Assessment and Plan NSTEMI s/p PCI of the LAD using a drug eluting stent Hypertension Hyperlipidemia Recommendations: Echocardiogram for LVEF assessment. Ok for transfer to telemetry. Discharge planning in the next 24hrs. Subjective Date of service: 05/29/18 Interval history: Patient is resting in bed comfortably. He denies chest pain. Guard is at bedside. Objective Vital Signs Temp Pulse Pulse Pulse Resp BP Pulse Ox 05/29/18 07:29 99.4 F 05/29/18 06:53 14 05/29/18 06:46 77 13 125/93 98 05/29/18 06:30 80 17 125/93 97 05/29/18 06:16 75 15 123/86 97 05/29/18 06:00 77 14 123/86 97 05/29/18 05:46 80 14 115/83 96 05/29/18 05:30 88 16 122/76 96 05/29/18 05:15 80 14 125/84 97 05/29/18 05:00 83 14 119/78 94 05/29/18 04:45 82 16 122/78 95 05/29/18 04:30 74 13 130/89 97 05/29/18 04:15 78 14 124/86 98 05/29/18 04:00 78 78 18 128/80 98 05/29/18 03:45 84 12 121/76 97 05/29/18 03:30 99.2 F 77 13 114/77 97 05 03:15 77 16 117/78 97 05/29/18 03:00 79 12 127/85 97 05/29/18 02:45 78 13 121/80 95 05/29/18 02:30 79 13 128/89 98 05/29/18 02:15 82 14 120/83 95 05/29/18 02:00 77 14 119/80 96 05/29/18 01:45 83 14 115/78 96 05/29/18 01:30 84 18 117/77 98 05 01:15 81 14 123/78 97 05/29/18 01:00 76 16 127/84 97 05/29/18 00:45 74 14 125/83 96 05/29/18 00:35 85 16 95 05/29/18 00:30 81 14 116/75 98 05/29/18 00:15 81 17 113/73 98 05/29/18 00:00 79 15 125/86 97 05/28/18 23:46 78 17 129/89 96 05/28/18 23:45 79 17 129/89 96 05/28/18 23:41 75 17 132/98 97 05/28/18 23:33 99.6 F 05/28/18 23:30 85 15 132/98 98 05/28/18 23:29 95 H 11 L 137/96 97 05/28/18 23:16 81 15 137/96 97 05/28/18 23:00 86 15 133/94 96 05/28/18 22:46 91 H 16 154/115 99 05/28/18 22:32 90 05/28/18 22:30 86 14 154/115 98 05/28/18 22:20 88 142/100 05/28/18 22:19 89 142/100 05/28/18 22:16 96 H 17 142/100 99 05/28/18 22:00 92 H 16 142/100 97 05/28/18 21:46 91 H 19 154/109 98 05/28/18 21:30 87 16 154/109 97 05/28/18 21:00 94 H 17 129/86 97 05/28/18 20:30 92 H 92 H 15 142/96 96 05/28/18 20:00 99.1 F 86 15 146/103 99 05/28/18 19:46 91 H 16 99 05/28/18 19:27 91 H 15 148/110 98 05/28/18 19:00 92 H 16 148/101 99 05/28/18 18:45 90 18 153/109 98 05/28/18 18:15 103 H 20 133/95 98 05/28/18 17:45 100 H 19 137/94 98 05/28/18 17:43 101 H 101 H 14 98 05/28/18 17:30 97 H 15 149/98 98 05/28/18 17:15 96 H 12 164/110 97 05/28/18 17:00 100 H 14 154/109 99 05/28/18 16:43 99.0 F 87 15 166/112 99 05/28/18 13:15 99 H 19 157/107 94 05/28/18 13:00 100 H 18 148/102 95 05/28/18 12:45 104 H 15 157/100 99 05/28/18 12:30 101 H 15 154/105 99 05/28/18 12:15 108 H 15 157/108 98 05/28/18 12:00 101 H 16 161/116 96 05/28/18 11:49 161/105 05/28/18 11:45 97 H 19 161/115 05/28/18 11:30 95 H 21 160/109 96 05/28/18 11:15 97 H 19 163/115 05/28/18 11:00 92 H 16 161/112 99 05/28/18 10:45 94 H 19 155/113 99 05/28/18 10:30 89 19 149/107 97 05/28/18 10:26 98.2 F 105 H 18 149/102 98 05/28/18 10:15 69 14 144/97 100 05/28/18 10:08 98 - Physical Examination General: No Apparent Distress HEENT: Positive: PERRL Neck: Positive: trachea midline Cardiac: Positive: Reg Rate and Rhythm Lungs: Positive: Decreased Breath Sounds Neuro: Positive: Grossly Intact Extremities: Absent: edema - Labs and Meds Cardiac Enzymes 05/28/18 05/29/18 Range/Units 11:04 04:03 AST 157 H (5-40) units/L CK-MB (CK-2) 160.0 H (0.0-4.0) ng/mL Coagulation 05/28/18 05/28/18 Range/Units 11:04 11:08 PT 13.8 (12.2-14.9) Sec. INR 1.00 (0.87-1.13) APTT 27.3 (24.2-36.6) Sec. Lipids 05/28/18 Range/Units 11:04 Triglycerides 295 H (2-149) mg/dL Cholesterol 140 (50-199) mg/dL HDL Cholesterol 43 (40-59) mg/dL Cholesterol/HDL Ratio 3.25 % CBC 05/28/18 05/29/18 Range/Units 11:04 04:03 WBC 9.4 8.2 (4.5-11.0) K/mm3 RBC 4.11 3.84 (3.65-5.03) M/mm3 Hgb 13.9 13.2 (11.8-15.2) gm/dl Hct 40.7 37.7 (35.5-45.6) % Plt Count 179 143 (140-440) K/mm3 Lymph # 1.2 2.9 (1.2-5.4) K/mm3 [place] # 0.4 0.8 (0.0-0.8) K/mm3 Eos # 0.0 0.1 (0.0-0.4) K/mm3 Baso # 0.1 0.0 (0.0-0.1) K/mm3 Comprehensive Metabolic Panel 05/28/18 05/29/18 Range/Units 11:04 04:03 Sodium 140 139 (137-145) mmol/L Potassium 4.0 3.2 L (3.6-5.0) mmol/L Chloride 99.2 103.5 (98-107) mmol/L Carbon Dioxide 21 L 24 (22-30) mmol/L BUN 7 L 4 L (9-20) mg/dL Creatinine 0.6 L 0.5 L (0.8-1.5) mg/dL Glucose 86 117 H (75-100) mg/dL Calcium 9.2 8.5 (8.4-10.2) mg/dL AST 157 H (5-40) units/L ALT 39 (7-56) units/L Alkaline Phosphatase 89 (35-129) units/L Total Protein 5.8 L (6.3-8.2) g/dL Albumin 3.5 L (3.9-5) g/dL
[2018-05-29] MEDS: PEPCID PO SCH ×2 (10:28→21:32)
[2018-05-29] MEDS: BABY ASPIRIN PO SCH (10:28)
[2018-05-29] MEDS: ZESTRIL PO SCH (10:28)
[2018-05-29] MEDS: IMDUR PO SCH (10:29)
[2018-05-29] MEDS: PLAVIX PO SCH (10:40)
[2018-05-29] MEDS: LOPRESSOR PO SCH ×2 (10:41→21:33)
--- NOTE | 2018-05-29 13:52 | Progress Note ---
History Interval history: NSTEMI. Patient is s/p PCI of the LAD using a drug eluting stent. Follow-up echocardiogram. Hypertension. Continue hypertensive medications. Hyperlipidemia. Continue statin. Hospitalist Physical - Constitutional Vitals: Temp Pulse Resp BP Pulse Ox 99.0 F 81 16 124/88 95 05/29/18 11:35 05/29/18 10:41 05/29/18 08:00 05/29/18 10:41 05/29/18 08:00 Results - Labs CBC & Chem 7: 05/29/18 04:03 05/29/18 04:03 Labs: Laboratory Last Values WBC 8.2 K/mm3 (4.5-11.0) 05/29/18 04:03 RBC 3.84 M/mm3 (3.65-5.03) 05/29/18 04:03 Hgb 13.2 gm/dl (11.8-15.2) 05/29/18 04:03 Hct 37.7 % (35.5-45.6) 05/29/18 04:03 MCV 98 fl (84-94) H 05/29/18 04:03 MCH 34 pg (28-32) H 05/29/18 04:03 MCHC 35 % (32-34) H 05/29/18 04:03 RDW 14.9 % (13.2-15.2) 05/29/18 04:03 Plt Count 143 K/mm3 (140-440) 05/29/18 04:03 Lymph % (Auto) 35.7 % (13.4-35.0) H 05/29/18 04:03 [place] % (Auto) 9.5 % (0.0-7.3) H 05/29/18 04:03 Eos % (Auto) 1.7 % (0.0-4.3) 05/29/18 04:03 Baso % (Auto) 0.5 % (0.0-1.8) 05/29/18 04:03 Lymph # 2.9 K/mm3 (1.2-5.4) 05/29/18 04:03 [place] # 0.8 K/mm3 (0.0-0.8) 05/29/18 04:03 Eos # 0.1 K/mm3 (0.0-0.4) 05/29/18 04:03 Baso # 0.0 K/mm3 (0.0-0.1) 05/29/18 04:03 Seg Neutrophils % 52.6 % (40.0-70.0) 05/29/18 04:03 Seg Neutrophils # 4.3 K/mm3 (1.8-7.7) 05/29/18 04:03 PT 13.8 Sec. (12.2-14.9) 05/28/18 11:04 INR 1.00 (0.87-1.13) 05/28/18 11:04 APTT 27.3 Sec. (24.2-36.6) 05/28/18 11:08 Activated Clotting Time 263 (74-137) H 05/28/18 16:28 Heparin Anti-Xa Level 0.52 U.I./ml (0.3-0.7) 05/28/18 19:49 Sodium 139 mmol/L (137-145) 05/29/18 04:03 Potassium 3.2 mmol/L (3.6-5.0) L 05/29/18 04:03 Chloride 103.5 mmol/L (98-107) 05/29/18 04:03 Carbon Dioxide 24 mmol/L (22-30) 05/29/18 04:03 Anion Gap 15 mmol/L 05/29/18 04:03 BUN 4 mg/dL (9-20) L 05/29/18 04:03 Creatinine 0.5 mg/dL (0.8-1.5) L 05/29/18 04:03 Estimated GFR > 60 ml/min 05/29/18 04:03 BUN/Creatinine Ratio 8 % 05/29/18 04:03 Glucose 117 mg/dL (75-100) H 05/29/18 04:03 POC Glucose 76 (70-105) 05/28/18 15:05 Hemoglobin A1c 4.9 % (4-6) 05/28/18 11:04 Calcium 8.5 mg/dL (8.4-10.2) 05/29/18 04:03 Total Bilirubin 1.80 mg/dL (0.1-1.2) H 05/29/18 04:03 AST 157 units/L (5-40) H 05/29/18 04:03 ALT 39 units/L (7-56) 05/29/18 04:03 Alkaline Phosphatase 89 units/L (35-129) 05/29/18 04:03 Total Creatine Kinase 907 units/L (55-170) H 05/28/18 11:04 CK-MB (CK-2) 160.0 ng/mL (0.0-4.0) H 05/28/18 11:04 CK-MB (CK-2) Rel Index 17.6 (0-4) H 05/28/18 11:04 Troponin T 3.260 ng/mL (0.00-0.029) H* 05/28/18 19:50 Total Protein 5.8 g/dL (6.3-8.2) L 05/29/18 04:03 Albumin 3.5 g/dL (3.9-5) L 05/29/18 04:03 Albumin/Globulin Ratio 1.5 % 05/29/18 04:03 Triglycerides 295 mg/dL (2-149) H 05/28/18 11:04 Cholesterol 140 mg/dL (50-199) 05/28/18 11:04 LDL Cholesterol Direct 61 mg/dL (50-130) 05/28/18 11:04 HDL Cholesterol 43 mg/dL (40-59) 05/28/18 11:04 Cholesterol/HDL Ratio 3.25 % 05/28/18 11:04 Urine Opiates Screen Presumptive negative 05/28/18 14:35 Urine Methadone Screen Presumptive negative 05/28/18 14:35 Ur Barbiturates Screen Presumptive negative 05/28/18 14:35 Ur Phencyclidine Scrn Presumptive negative 05/28/18 14:35 Ur Amphetamines Screen Presumptive negative 05/28/18 14:35 U Benzodiazepines Scrn Presumptive negative 05/28/18 14:35 Urine Cocaine Screen Presumptive negative 05/28/18 14:35 U Marijuana (THC) Screen Presumptive negative 05/28/18 14:35 Drugs of Abuse Note Disclamer 05/28/18 14:35
[2018-05-29] MEDS: SODIUM CHLORIDE FLUSH SYRINGE 10 ML IV SCH ×2 (19:02→21:33)
[2018-05-30] MEDS ORDERED: K-DUR PO ONE
[2018-05-30] MEDS ORDERED: MAGNESIUM SULFATE 2GM/50ML 2 GM/50 ML BAG IV ONE (00:03)
[2018-05-30 07:26] LABS: Hematocrit 38.7 % (35.5-45.6); Hemoglobin 12.9 gm/dl (11.8-15.2)
--- NOTE | 2018-05-30 09:59 | Discharge Summary ---
Providers - Providers Date of Admission: 05/28/18 12:08 Date of discharge: 06/06/18 Attending physician: MARTINE MENDIETA 05/28/18 Consult to Case Management [CONS] Routine Services Needed at Discharge: Home Health Services Notified:: case management 05/28/18 11:48 Consult to Physician [CONS] Urgent Comment: Consulting Provider: MIGUEL YANG Physician Instructions: Reason For Exam: nstemi 05/28/18 16:43 Consult to Cardiac Rehabilitation [CONS] Routine Reason For Exam: Cardiac Rehab Evaluation 05/28/18 17:12 Consult to Physician [CONS] Routine Comment: Consulting Provider: ROSIO BAKER Physician Instructions: Reason For Exam: Pt to to ICU [facility] Reason for admission: STEMI Condition: Stable Hospital course: 57-year-old male with past medical history of GERD, CAD, hypertension, elevated cholesterol, previous cholecystectomy presented complaining of chest pain 2 days prior to admission. Patient received nitroglycerin and aspirin prior to arrival. As per medical record, he had a cardiac cath here in November 2014 that showed ejection fraction of 45-50%, and mild irregularities with no significant CAD. The patient was initiated on a heparin and nitroglycerin drip. The patient was taken emergently to the microbiological lab technician with cardiac catheterization. The patient was admitted with diagnosis of NSTEMI. Patient underwent PCI of the LAD using a drug eluting stent. The patient was then admitted to the ICU on a nitroglycerin infusion post catheterization. Nitroglycerin was discontinued and patient was later transferred to the floor. Patient remained stable and pain-free and thus was felt to have received maximal hospital benefit. Dedicated discharge time 35 minutes. Disposition: - TO HOME OR SELFCARE Time spent for discharge: 35 - Discharge Diagnoses (1) S/P drug eluting coronary stent placement Status: Acute (2) Chest pain Status: Acute (3) HTN (hypertension) Status: Acute (4) Hyperlipemia Status: Acute (5) Non-STEMI (non-ST elevated myocardial infarction) Status: Acute (6) Unstable angina Status: Acute Core Measure Documentation - Palliative Care Palliative Care/ Comfort Measures: Not Applicable - Core Measures Any of the following diagnoses?: acute TX - Acute TX Discharge Requirements Aspirin at discharge: Yes NAVEEN/ARB for LVSD if EF <40%: Yes Beta alvarez at discharge: Yes Statin for LDL = or >100 mg/dl on DC: Yes Exam - Constitutional Vitals: Temp Pulse Resp BP Pulse Ox 98.8 F 75 18 134/96 99 05/30/18 03:59 05/30/18 07:51 05/30/18 03:59 05/30/18 03:58 05/30/18 03:58 General appearance: Present: no acute distress, well-nourished - EENT Eyes: Present: PERRL ENT: hearing intact, clear oral mucosa - Neck Neck: Present: supple, normal ROM - Respiratory Respiratory effort: normal Respiratory: bilateral: CTA - Cardiovascular Heart Sounds: Present: S1 & S2. Absent: rub, click - Extremities Extremities: pulses symmetrical, No edema Peripheral Pulses: within normal limits - Abdominal General gastrointestinal: Present: soft, non-tender, non-distended, normal bowel sounds Male genitourinary: Present: normal - Integumentary Integumentary: Present: clear, warm, dry - Musculoskeletal Musculoskeletal: gait normal, strength equal bilaterally - Psychiatric Psychiatric: appropriate mood/affect, intact judgment & insight - Neurologic Neurologic: CNII-XII intact, moves all extremities Plan Activity: advance as tolerated Weight Bearing Status: Weight Bear as Tolerated Diet: low fat, low cholesterol, low salt Follow up with: BENJAMIN KIRBY MD [Primary Care Provider] - 3-5 Days GILLIAN WRIGHT MD [Staff Physician] - 7 Days Prescriptions: Aspirin [Aspirin BABY CHEW TAB] 81 mg PO QDAY #30 tab.chew Rosuvastatin Calcium [Crestor] 40 mg PO DAILY #30 tablet ISOSORBIDE MONOnitrate [Imdur ER] 120 mg PO QDAY #30 tablet AtorvaSTATin [Lipitor] 80 mg PO DAILY #30 tablet Metoprolol [Lopressor TAB] 12.5 mg PO BID #60 tablet Nitroglycerin [Nitrostat] 0.4 mg SL Q5M PRN #30 tab.subl PRN Reason: Chest Pain HYDROcodone/APAP 5-325 [Mildred 5-325 mg TAB] 1 each PO Q4H PRN #12 tablet PRN Reason: Pain, Moderate (4-6) Famotidine [Pepcid] 20 mg PO BID #60 tablet Clopidogrel [Plavix] 75 mg PO QDAY #30 tablet Lisinopril [Zestril TAB] 10 mg PO QDAY #30 tablet
[2018-05-30 10:08] VITALS: BP 124/87
[2018-05-30] MEDS: PLAVIX PO SCH (10:25)
[2018-05-30] MEDS: BABY ASPIRIN PO SCH (10:25)
[2018-05-30] MEDS: LOPRESSOR PO SCH (10:25)
[2018-05-30] MEDS: IMDUR PO SCH (10:25)
[2018-05-30] MEDS: PEPCID PO SCH (10:25)
[2018-05-30] MEDS: ZESTRIL PO SCH (10:26)
--- NOTE | 2018-05-30 11:05 | Progress Note ---
Assessment and Plan NSTEMI s/p PCI of the LAD using a drug eluting stent on DAPT with plavix and aspirin Hypertension Hyperlipidemia Echocardiogram reveals a moderately decreased left ventricular systolic function, ejection fraction 35-40%. Recommend: Medical therapy for ischemic cardiomyopathy and coronary artery disease. Stable cardiac aponte for discharge today. Patient advised to follow up with [facility] once released from halfway. Subjective Date of service: 05/30/18 Interval history: Patient has no complaints. Guard is at the bedside. Objective Vital Signs Temp Pulse Pulse Resp BP Pulse Ox 05/30/18 10:26 124/87 05/30/18 10:25 71 124/87 05/30/18 10:12 98.3 F 05/30/18 10:07 98.6 F 71 18 124/87 100 05/30/18 07:51 75 05/30/18 03:59 98.8 F 18 05/30/18 03:58 98.8 F 70 18 134/96 99 05/29/18 23:15 98.8 F 75 17 125/91 99 05/29/18 22:00 83 05/29/18 21:33 82 111/71 05/29/18 19:55 99.1 F 82 17 111/71 96 05/29/18 16:30 73 15 128/96 97 05/29/18 16:20 74 14 133/98 97 05/29/18 16:10 81 16 133/98 98 05/29/18 16:08 98.7 F 05/29/18 16:00 75 85 13 121/96 99 05/29/18 15:50 74 16 121/96 97 05/29/18 15:40 76 14 121/96 100 05/29/18 15:30 75 13 121/96 96 05/29/18 15:20 75 15 95/55 99 05/29/18 15:10 76 14 95/55 96 05/29/18 15:00 84 24 125/86 93 05/29/18 14:50 74 12 125/86 98 05/29/18 14:40 76 14 125/86 97 05/29/18 14:30 77 14 125/86 97 05/29/18 14:20 74 14 120/86 98 05/29/18 14:10 77 16 120/86 97 05/29/18 14:00 78 16 120/86 98 05/29/18 13:50 88 15 105/62 100 05/29/18 13:40 79 17 105/62 100 05/29/18 13:30 87 17 105/62 98 05/29/18 13:20 89 29 H 129/90 99 05/29/18 13:10 90 17 129/90 98 05/29/18 13:00 80 14 129/90 98 05/29/18 12:50 83 15 129/90 98 05/29/18 12:40 79 11 L 129/90 99 05/29/18 12:30 75 14 129/90 98 05/29/18 12:20 80 16 126/85 97 05/29/18 12:10 82 12 134/103 100 05/29/18 12:00 79 14 134/103 97 05/29/18 11:50 80 17 126/85 97 05/29/18 11:40 81 15 126/85 98 05/29/18 11:35 99.0 F 05/29/18 11:30 82 16 126/85 97 05/29/18 11:20 78 16 138/99 97 05/29/18 11:10 78 16 138/99 99 - Physical Examination General: No Apparent Distress HEENT: Positive: PERRL Neck: Positive: trachea midline Cardiac: Positive: Reg Rate and Rhythm Lungs: Positive: Decreased Breath Sounds Neuro: Positive: Grossly Intact Extremities: Absent: edema - Labs and Meds CBC 05/30/18 Range/Units 04:00 Hgb 12.9 (11.8-15.2) gm/dl Hct 38.7 (35.5-45.6) % Plt Count 132 L (140-440) K/mm3
--- NOTE | 2018-05-30 13:04 | Progress Note ---
Assessment and Plan Patient awake. No acute respiratory distress. O2 saturation 100% on room air.No complaint of chest pain,shortness breath or cough. - Patient Problems (1) Chest pain Status: Acute Plan to address problem: Patient has coronary stent placement. Management as per cardiology. (2) Non-STEMI (non-ST elevated myocardial infarction) Status: Acute Plan to address problem: Patient has coronary stent placement. Management as per cardiology. (3) S/P drug eluting coronary stent placement Status: Acute Plan to address problem: Management as per cardiology. (4) Tobacco abuse counseling Status: Acute Plan to address problem: Counselled to stop smoking. Patient he will stop smoking on his own. Subjective Date of service: 05/30/18 Interval history: Patient awake. No acute respiratory distress. O2 saturation 100% on room air.No complaint of chest pain,shortness breath or cough. Objective Vital Signs - 12hr 05/30/18 05/30/18 05/30/18 03:58 03:59 07:51 Temperature 98.8 F 98.8 F Pulse Rate 70 75 Respiratory 18 18 Rate Blood Pressure 134/96 O2 Sat by Pulse 99 Oximetry 05/30/18 05/30/18 05/30/18 10:07 10:12 10:25 Temperature 98.6 F 98.3 F Pulse Rate 71 71 Respiratory 18 Rate Blood Pressure 124/87 124/87 O2 Sat by Pulse 100 Oximetry 05/30/18 10:26 Temperature Pulse Rate Respiratory Rate Blood Pressure 124/87 O2 Sat by Pulse Oximetry Constitutional: no acute distress, alert, other (atraumatic, normocephalic) Eyes: non-icteric ENT: oropharynx moist, other Neck: supple, no lymphadenopathy, no JVD Effort: normal Ascultation: Bilateral: diminished breath sounds Cardiovascular: regular rate and rhythm, other (S1,S2, no murmurs, gallops or rubs) Integumentary: normal Extremities: no cyanosis, no edema, pink and warm, pulses normal, other (In foot cuffs) Neurologic: normal mental status, pupils equal and round, CN II-XII normal, motor strength normal and Psychiatric: mood appropriate, affect normal CBC and BMP: 05/30/18 04:00 05/29/18 04:03 ABG, PT/INR, D-dimer: PT/INR, D-dimer PT 13.8 Sec. (12.2-14.9) 05/28/18 11:04 INR 1.00 (0.87-1.13) 05/28/18 11:04 Abnormal lab findings: Abnormal Labs 05/28/18 05/28/18 05/28/18 11:04 11:04 11:04 MCV 99 H MCH 34 H MCHC Plt Count Lymph % (Auto) 13.2 L Bertie % (Auto) Seg Neutrophils % 82.2 H Activated Clotting Time Potassium Carbon Dioxide 21 L BUN 7 L Creatinine 0.6 L Glucose Total Bilirubin AST Total Creatine Kinase 907 H CK-MB (CK-2) 160.0 H CK-MB (CK-2) Rel Index 17.6 H Troponin T 1.710 H* Total Protein Albumin Triglycerides 295 H 05/28/18 05/28/18 05/28/18 13:56 16:28 19:50 MCV MCH MCHC Plt Count Lymph % (Auto) Bertie % (Auto) Seg Neutrophils % Activated Clotting Time 263 H Potassium Carbon Dioxide BUN Creatinine Glucose Total Bilirubin AST Total Creatine Kinase CK-MB (CK-2) CK-MB (CK-2) Rel Index Troponin T 3.180 H* D 3.260 H* Total Protein Albumin Triglycerides 05/29/18 05/29/18 05/30/18 04:03 04:03 04:00 MCV 98 H MCH 34 H MCHC 35 H Plt Count 132 L Lymph % (Auto) 35.7 H Bertie % (Auto) 9.5 H Seg Neutrophils % Activated Clotting Time Potassium 3.2 L Carbon Dioxide BUN 4 L Creatinine 0.5 L Glucose 117 H Total Bilirubin 1.80 H AST 157 H Total Creatine Kinase CK-MB (CK-2) CK-MB (CK-2) Rel Index Troponin T Total Protein 5.8 L Albumin 3.5 L Triglycerides Chest x-ray: report reviewed (uNREMARKABLE ap CHEST.), image reviewed
== END 2018-05-30 14:42 | disposition home or self-care (01) | DRG 246 ==
LOC: ED 09:59 → EEVIPCON 12:08 → CC1 12:08 → 4A 05-29 17:20
PROVIDERS: ADMIT Internal Medicine; ATTEND Hospitalist
PROC: 027034Z Dilation of Coronary Artery, One Artery with Drug-eluting Intraluminal Device, Percutaneous Approach (ICD-10-PCS; principal; 2018-05-28)
PROC: 4A023N7 Measurement of Cardiac Sampling and Pressure, Left Heart, Percutaneous Approach (ICD-10-PCS; 2018-05-28)
PROC: B2111ZZ Fluoroscopy of Multiple Coronary Arteries using Low Osmolar Contrast (ICD-10-PCS; 2018-05-28)
PROC: B2151ZZ Fluoroscopy of Left Heart using Low Osmolar Contrast (ICD-10-PCS; 2018-05-28)
DX: I21.4 Non-ST elevation (NSTEMI) myocardial infarction (principal); I50.21 Acute systolic (congestive) heart failure; I10 Essential (primary) hypertension; Z91.14 Patient's other noncompliance with medication regimen; E78.5 Hyperlipidemia, unspecified; K21.9 Gastro-esophageal reflux disease without esophagitis; Z90.49 Acquired absence of other specified parts of digestive tract; Z79.82 Long term (current) use of aspirin; E78.00 Pure hypercholesterolemia, unspecified; F17.200 Nicotine dependence, unspecified, uncomplicated; Z91.19 Patient's noncompliance with other medical treatment and regimen; E87.6 Hypokalemia; I25.110 Atherosclerotic heart disease of native coronary artery with unstable angina pectoris; I25.5 Ischemic cardiomyopathy; Z71.6 Tobacco abuse counseling
CPT/HCPCS: 36415; 71045; 80048; 80053; 80061; 80307; 82550; 82553; 82962; 83036; 83735; 84484; 85014; 85018; 85025; 85049; 85347; 85520; 85610; 85730; 92928; 93005; 93010; 93306; 93458; 96374; 99291; G0378; A9270-GY; C1769; C1874; C1887; C1894; C9600; J1644; J2250; J2270; J3010; J3475; J7030; J7040; Q9967

== ENCOUNTER 2018-07-17 22:36 | Observation (INO) | payer BC, OTHER ==
--- NOTE | 2018-07-17 22:44 | Emergency Department Report ---
Stated Complaint: DIZZY, LOW BLOOD PRESSURE, NUMBNESS LEFT ARM Time Seen by Provider: 07/17/18 22:44 - HPI History of Present Illness: recent VT co dizziness hypotension see EMR To main MSE screening note: Focused history and physical exam performed. Due to findings the following was ordered: ED Disposition for MSE Condition: Stable
[2018-07-17 23:18] LABS: Basophils # (Auto) 0.1 K/mm3 (0.0-0.1); Basophils % (Auto) 0.8 % (0.0-1.8); Eosinophils # (Auto) 0.1 K/mm3 (0.0-0.4); Hematocrit 36.2 % (35.5-45.6); Hemoglobin 12.5 gm/dl (11.8-15.2); Lymphocytes # (Auto) 3.6 K/mm3 (1.2-5.4); Lymphocytes % (Auto) 41.2 % (13.4-35.0); Mean Corpuscular HGB Conc 35 % (32-34); Mean Corpuscular Volume 101 fl (84-94); Monocytes # (Auto) 0.5 K/mm3 (0.0-0.8); Monocytes % (Auto) 5.2 % (0.0-7.3); Platelet Count 170 K/mm3 (140-440); Red Blood Count 3.59 M/mm3 (3.65-5.03); Red Cell Distribution Width 14.1 % (13.2-15.2)
[2018-07-17 23:42] LABS: Alanine Aminotransferase 67 units/L (7-56); Albumin 3.8 g/dL (3.9-5); BUN/Creatinine Ratio 8; Blood Urea Nitrogen 6 mg/dL (9-20); Calcium 8.8 mg/dL (8.4-10.2); Hemolysis Index 11
--- NOTE | 2018-07-18 00:05 | XRay Report ---
PROCEDURE: XR CHEST ROUTINE 2V TECHNIQUE: PA and lateral views the chest were obtained. HISTORY: Chest Pain COMPARISONS: 05/28/2018 FINDINGS: The heart size and mediastinum appear normal. The lungs are clear. Pleural fluid is not seen. The bon es and soft tissues do not show acute changes. There is a well-healed fracture of the right fifth rib laterally. IMPRESSION: No acute cardiopulmonary process.. This document is electronically signed by Sae Acevedo MD., July 18 2018 12:03:35 AM ET
--- NOTE | 2018-07-18 00:43 | Emergency Department Report ---
ED General Adult HPI - General Chief complaint: Dizziness Stated complaint: DIZZY, LOW BLOOD PRESSURE, NUMBNESS LEFT ARM Time Seen by Provider: 07/17/18 22:44 Source: patient Mode of arrival: Ambulatory Limitations: No Limitations - History of Present Illness Initial comments: 57-year-old male with a history of coronary disease, hypercholesterolemia pres ents with the complaint of dizziness. Patient states that he checked his blood pressure while at home and his blood pressure was 74/53. Patient describes the chest discomfort at 2 PM feeling as if he got hit with a baseball bat. Patient denies any radiation of this pain. Patient denies any back pain. Patient had recent stent placement in May 2018. Patient denies any LOC. Patient denies overdosing any of his antihypertensive medications. Patient denies any fever or cough. Severity scale (0 -10): 3 - Related Data Home Medications Medication Instructions Recorded Confirmed Last Taken amLODIPine [Norvasc] 10 mg PO DAILY 12/14/14 07/18/18 02/05/16 04:00 dilTIAZem CD [Cardizem CD] 240 mg PO QDAY 05/28/18 07/18/18 Unknown Previous Rx's Medication Instructions Recorded Last Taken Type Aspirin [Aspirin BABY CHEW TAB] 81 mg PO QDAY #30 tab.chew 05/30/18 07/17/18 Rx AtorvaSTATin [Lipitor] 80 mg PO DAILY #30 tablet 05/30/18 07/17/18 Rx Clopidogrel [Plavix] 75 mg PO QDAY #30 tablet 05/30/18 07/17/18 Rx Famotidine [Pepcid] 20 mg PO BID #60 tablet 05/30/18 07/17/18 Rx HYDROcodone/APAP 5-325 [Watson 1 each PO Q4H PRN #12 tablet 05/30/18 Unknown Rx 5-325 mg TAB] ISOSORBIDE MONOnitrate [Imdur ER] 120 mg PO QDAY #30 tablet 05/30/18 07/17/18 Rx Lisinopril [Zestril TAB] 10 mg PO QDAY #30 tablet 05/30/18 07/17/18 Rx Metoprolol [Lopressor TAB] 12.5 mg PO BID #60 tablet 05/30/18 07/17/18 Rx Nitroglycerin [Nitrostat] 0.4 mg SL Q5M PRN #30 tab.subl 05/30/18 Unknown Rx Rosuvastatin Calcium [Crestor] 40 mg PO DAILY #30 tablet 05/30/18 Unknown Rx Allergies Allergy/AdvReac Type Severity Reaction Status Date / Time No Known Allergies Allergy Verified 04/23/18 22:22 ED Review of Systems ROS: Stated complaint: DIZZY, LOW BLOOD PRESSURE, NUMBNESS LEFT ARM Other details as noted in HPI Constitutional: denies: chills, fever Eyes: denies: eye pain, eye discharge, vision change ENT: denies: ear pain, throat pain Respiratory: denies: cough, shortness of breath, wheezing Cardiovascular: chest pain. denies: palpitations Endocrine: no symptoms reported Gastrointestinal: denies: abdominal pain, nausea, diarrhea Genitourinary: denies: urgency, dysuria Musculoskeletal: denies: back pain, joint swelling, arthralgia Skin: denies: rash, lesions Neurological: other (dizziness) Psychiatric: denies: anxiety, depression Hematological/Lymphatic: denies: easy bleeding, easy bruising ED Past Medical Hx - Past Medical History Hx Hypertension: Yes (FOR 30 YRS, DR. WESLEY EVANS- PCP) Hx Heart Attack/AMI: Yes (2004) Hx Congestive Heart Failure: No Hx Diabetes: No Hx GERD: Yes Hx Asthma: No Hx COPD: No Hx HIV: No Additional medical history: high cholestrol. heart spasms - Surgical History Hx Coronary Stent: Yes (1 sent LAD) Hx Cholecystectomy: Yes - Social History Smoking Status: Unknown if ever smoked - Medications Home Medications: Home Medications Medication Instructions Recorded Confirmed Last Taken Type amLODIPine [Norvasc] 10 mg PO DAILY 12/14/14 07/18/18 02/05/16 04:00 History dilTIAZem CD [Cardizem CD] 240 mg PO QDAY 05/28/18 07/18/18 Unknown History Aspirin [Aspirin BABY CHEW TAB] 81 mg PO QDAY #30 tab.chew 05/30/18 07/18/18 Rx AtorvaSTATin [Lipitor] 80 mg PO DAILY #30 tablet 05/30/18 07/18/18 07/17/18 Rx Clopidogrel [Plavix] 75 mg PO QDAY #30 tablet 05/30/18 07/18/18 07/17/18 Rx Famotidine [Pepcid] 20 mg PO BID #60 tablet 05/30/18 07/18/1807/17/19 Rx HYDROcodone/APAP 5-325 [Watson 1 each PO Q4H PRN #12 tablet 05/30/18 07/18/18 Unknown Rx 5-325 mg TAB] ISOSORBIDE MONOnitrate [Imdur ER] 120 mg PO QDAY #30 tablet 05/30/18 07/18/18 07/17/18 Rx Lisinopril [Zestril TAB] 10 mg PO QDAY #30 tablet 05/30/18 07/18/18 07/17/18 Rx Metoprolol [Lopressor TAB] 12.5 mg PO BID #60 tablet 05/30/18 07/18/18 07/17/18 Rx Nitroglycerin [Nitrostat] 0.4 mg SL Q5M PRN #30 tab.subl 05/30/18 07/18/18 Unknown Rx Rosuvastatin Calcium [Crestor] 40 mg PO DAILY #30 tablet 05/30/18 07/18/18 Unknown Rx ED Physical Exam - General Limitations: No Limitations General appearance: alert, other (in minimal distress) - Head Head exam: Present: atraumatic, normocephalic - Eye Eye exam: Present: normal appearance - ENT ENT exam: Present: mucous membranes moist - Neck Neck exam: Present: normal inspection - Respiratory Respiratory exam: Present: normal lung sounds bilaterally. Absent: respiratory distress - Cardiovascular Cardiovascular Exam: Present: regular rate, normal rhythm. Absent: systolic murmur, diastolic murmur, rubs, gallop - GI/Abdominal GI/Abdominal exam: Present: soft, normal bowel sounds - Rectal Rectal exam: Present: deferred - Extremities Exam Extremities exam: Present: normal inspection - Back Exam Back exam: Present: normal inspection - Neurological Exam Neurological exam: Present: alert, oriented X3 - Psychiatric Psychiatric exam: Present: normal affect, normal mood - Skin Skin exam: Present: warm, dry, intact, normal color. Absent: rash ED Course Vital Signs 07/17/18 07/17/18 07/18/18 22:46 23:42 02:04 Temperature 98.0 F Pulse Rate 92 H 86 Respiratory 18 18 18 Rate Blood Pressure 109/86 Blood Pressure 98/67 [Right] O2 Sat by Pulse 98 97 98 Oximetry 07/18/18 07/18/18 02:43 04:11 Temperature Pulse Rate 65 64 Respiratory 18 18 Rate Blood Pressure Blood Pressure 101/70 106/72 [Right] O2 Sat by Pulse 98 100 Oximetry ED Medical Decision Making - Lab Data Result diagrams: 07/17/18 22:59 07/17/18 22:59 - EKG Data EKG shows normal: sinus rhythm - EKG Data Interpretation: other (PVCs occasionally noted) - Medical Decision Making Patient to be admitted to the hospitalist service for continued management and treatment. Patient received IV fluids and his blood pressure picked up to a s ystolic of 90. - Differential Diagnosis NSTEMI; STEMI; Dehydration; Electrolyte Abnormality; Anemia Critical Care Time: Yes Critical care time in (mins) excluding proc time.: 40 Critical care attestation.: If time is entered above; I have spent that time in minutes in the direct care of this critically ill patient, excluding procedure time. Critical care time includes time spent with direct bedside care, frequent reassessment, and physician consultation. ED Disposition Clinical Impression: Hypotension, Chest pain Disposition: 09 OP ADMIT IP TO THIS HOSP Is pt being admited?: Yes Condition: Stable Instructions: Chest Pain (ED) Time of Disposition: 04:24
[2018-07-18] MEDS ORDERED: NACL 0.9% 500 ML 500 ML IV ONE (00:47)
--- NOTE | 2018-07-18 01:55 | Cat Scan Report ---
PROCEDURE: CT ANGIO CHEST TECHNIQUE: Computerized tomographic angiography of the chest was performed after the IV injection of iodinated nonionic contrast including image processing. The image data was postprocessed using 2-di mensional multiplanar reformatted (MPR) and 3-dimensional (MIP and/or volume rendered) techniques. Au tomated exposure control, adjustment of mA and/or kV according to patient size, or iterative reconstr uction dose optimization techniques were utilized. HISTORY: hypotension with chest pain; dissection protocol COMPARISONS: None . FINDINGS: Heart and pericardium: Normal. Thoracic aorta: The aorta has a normal caliber. No dissection or aneurysm.. Pulmonary vasculature: There is no evidence of pulmonary arterial emboli. Lymph nodes: No enlarged thoracic lymph nodes. Lungs: Normal. Pleural space: No effusion, thickening, or pneumothorax. Musculoskeletal structures: No significant abnormality. Upper abdominal structures: 1 cm suspected cyst in the posterior upper right lobe of the liver.. IMPRESSION: The aorta has a normal caliber without aneurysm or dissection. There is no evidence of pulmonary arterial emboli. The lungs are clear without infiltrate, effusion or pneumothorax. . This document is electronically signed by Carole Fragoso DO., July 18 2018 01:54:09 AM ET
--- NOTE | 2018-07-18 02:24 | Cat Scan Report ---
PROCEDURE: CT ANGIO ABDOMEN TECHNIQUE: Computerized axial tomographic angiography of the abdomen was performed after the IV inj ection of iodinated nonionic contrast. The image data was postprocessed using 2-dimensional multiplan ar reformatted (MPR) and 3-dimensional (MIP and/or volume rendered) techniques. HISTORY: CHEST PAIN DISSECTION PROTOCOL COMPARISONS: None . FINDINGS: Abdominal aorta: The abdominal aorta has a normal caliber without dissection or aneurysm. Minimal ath erosclerosis of the aorta and branching vessels. . Celiac artery: Normal . Superior mesenteric artery: Normal . Left renal artery: Normal . Right renal artery: Normal . Inferior mesenteric artery: Normal . Abdominal viscera: There are a few cysts identified in the right lobe the liver. The largest cyst me asures centimeter in the upper posterior right lobe. There are a few subcentimeter renal cortical cys ts identified bilaterally. No hydronephrosis. . IMPRESSION: The abdominal aorta has a normal caliber without dissection or aneurysm. There is mild a therosclerosis of the aorta and branching vessels. . This document is electronically signed by Carole Fragoso DO., July 18 2018 02:22:42 AM ET
[2018-07-18 02:48] LABS: Bilirubin,Urine NEG (Negative); Blood,Urine NEG (Negative); Color,Urine Yellow (Yellow); Hyaline Casts,Urine 1 /LPF; Mucus,Urine FEW /HPF; Protein,Urine <15 mg/dL mg/dL (Negative); Urobilinogen,Urine < 2.0 mg/dL (<2.0)
[2018-07-18] MEDS ORDERED: ECOTRIN PO ONE (04:24)
[2018-07-18] MEDS ORDERED: ULTRAM PO ONE ×2 (04:35→04:37)
[2018-07-18] MEDS ORDERED: TYLENOL ONE (08:54)
[2018-07-18] MEDS ORDERED: TYLENOL PO ONE (08:55)
--- NOTE | 2018-07-18 11:17 | History and Physical Report ---
History of Present Illness Date of examination: 07/18/18 Date of admission: 07/18/18 04:43 Chief complaint: Chest pains History of present illness: Patient is a 57 yo man with a history of GERD, tobacco dependency, alcohol abuse ("I drink too much"), dyslipidemia, hypertension and CAD s/p recent PCI with MARITA x 1 to the LAD here on 05/28/2018 who presents to [facility] ED on 07/17/18 with severe intermittent sharp to dull left sided chest pains radiating to left arm associa ines with PHILLY, dizziness and low blood pressure without aggravating or relieving factors. His blood pressure was 74/53 when he checked. He is on 4 blood pressures medications since the Cardiac shent placed. He reports being compliant. There have been no change in blood pressure medications. He denies severe headaches, n/v/syncope. He admits to unintentional weight loss of at least 40 lbs since the sudden unexpected of his son in April 2018 from brain aneurysm. He is not eating much, he admits to depression but denies SI/HI. He is using beer to cope with the loss. His last alcohol drink was Monday evening around 10pm. He denies alcohol withdrawal seizures. He declined mental health evaluation at this time. PMH: as hpi PSH: lap jose, 3 cardiac cath, colonoscopy, SH: 1/2 ppd tob, 6 pack beer last 1.5 days, no drug, retired [employer] FH: hypertension, diabetes mellitus, denies premature CAD, father had unspecified cancer ROS: Constitutional: denies: fever ENT: denies: throat or neck pain Respiratory:+ cough, shortness of breath Cardiovascular: + chest pain Endocrine: +unexplained weight loss, denies HIV Gastrointestinal: denies: abdominal pain, nausea Genitourinary: denies: dysuria Rectal: denies no incontinence, no bleeding, no itching, no discharge Musculoskeletal: denies swelling, myaglia, muscle weakness Skin: denies: rash Neurological: denies: headache Hematological/Lymphatic: denies: easy bleeding or easy bruising Allergic/Immunologic: no urticaria, no allergic rhinitis, no anaphylaxis Psych: +sadness negative hopelessness, SI/HI Medications and Allergies Allergies Allergy/AdvReac Type Severity Reaction Status Date / Time No Known Allergies Allergy Verified 04/23/18 22:22 Home Medications Medication Instructions Recorded Confirmed Last Taken Type amLODIPine [Norvasc] 10 mg PO DAILY 12/14/14 07/18/18 02/05/16 04:00 History dilTIAZem CD [Cardizem CD] 240 mg PO QDAY 05/28/18 07/18/18 Unknown History Aspirin [Aspirin BABY CHEW TAB] 81 mg PO QDAY #30 tab.chew 05/30/18 07/18/18 07/17/18 Rx AtorvaSTATin [Lipitor] 80 mg PO DAILY #30 tablet 05/30/18 07/18/18 07/17/18 Rx Clopidogrel [Plavix] 75 mg PO QDAY #30 tablet 05/30/18 07/18/18 07/17/18 Rx Famotidine [Pepcid] 20 mg PO BID #60 tablet 05/30/18 07/18/18 07/17/18 Rx HYDROcodone/APAP 5-325 [[place] 1 each PO Q4H PRN #12 tablet 05/30/18 07/18/18 Unknown Rx 5-325 mg TAB] ISOSORBIDE MONOnitrate [Imdur ER] 120 mg PO QDAY #30 tablet 05/30/18 07/18/18 07/17/18 Rx Lisinopril [Zestril TAB] 10 mg PO QDAY #30 tablet 05/30/18 07/18/18 07/17/18 Rx Metoprolol [Lopressor TAB] 12.5 mg PO BID #60 tablet 05/30/18 07/18/18 07/17/18 Rx Nitroglycerin [Nitrostat] 0.4 mg SL Q5M PRN #30 tab.subl 05/30/18 07/18/18 Unknown Rx Rosuvastatin Calcium [Crestor] 40 mg PO DAILY #30 tablet 05/30/18 07/18/18 Unkno wn Rx Exam - Physical Exam Narrative exam: Gen: cachetic, , NAD, Awake, Alert, Orientated HEENT: NCAT, sunken jew muscle wasting, EOMI, PERRL, OP Clear Neck: supple, no adenopathy, no thyromegaly, no JVD CVS/Heart: RRR, normal S1S2, pulses present bilaterally Chest/Lungs: CTA B, Symmetrical chest expansion, good air entry bilaterally GI/Abdomen: soft, NTND, good bowel sounds, no guarding or rebound /Bladder: no suprapubic tenderness, no CVA or paraspinal tenderness Extermity/Skin: no c/c/e, no obvious rash MSK: FROM x 4 Neuro: CN 2-12 grossly intact, no new focal deficits Psych: sad, cried when asked about diet - Constitutional Vitals: Temp Pulse Resp BP Pulse Ox 98.0 F 62 17 116/84 98 07/17/18 22:46 07/18/18 07:56 07/18/18 08:57 07/18/18 07:52 07/18/18 07:52 Results - Labs CBC & Chem 7: 07/17/18 22:59 07/17/18 22:59 Labs: Abnormal lab results 07/17/18 07/17/18 07/18/18 Range/Units 22:59 22:59 02:33 RBC 3.59 L (3.65-5.03) M/mm3 MCV 101 H (84-94) fl MCH 35 H (28-32) pg MCHC 35 H (32-34) % Lymph % (Auto) 41.2 H (13.4-35.0) % Carbon Dioxide 19 L (22-30) mmol/L BUN 6 L (9-20) mg/dL AST 135 H (5-40) units/L ALT 67 H (7-56) units/L Alkaline Phosphatase 142 H (35-129) units/L Albumin 3.8 L (3.9-5) g/dL [facility] [place] 1.043 H (1.003-1.030) Assessment and Plan Patient is a 57 yo man with a history of GERD, tobacco dependency, alcohol abuse, dyslipidemia, hypertension and CAD s/p recent PCI with MARITA x 1 to the LAD here on 05/28/2018 who presents to [facility] ED on 07/17/18 with severe intermittent sharp to dull left sided chest pains radiating to left arm associated with PHILLY, dizziness and low blood pressure without aggravating or relieving factors. His blood pressure was 74/53 when he checked. He is on 4 blood pressures medications since the Cardiac shent placed. He reports being compliant. There have been no change in blood pressure medications. He denies severe headaches, n/v/syncope. He admits to unintentional weight loss of at least 40 lbs since the sudden unexpected of his son in April 2018 from brain aneurysm. He is not eating much, he admits to depression but denies SI/HI. He is using beer to cope with the loss. His last alcohol drink was Monday evening around 10pm. He denies alcohol withdrawal seizures. He declined mental health evaluation at this time. * CTA chest IMPRESSION: The aorta has a normal caliber without aneurysm or dissection. There is no evidence of pulmonary arterial emboli. The lungs are clear without infiltrate, effusion or pneumothorax. . * CTA abdomen IMPRESSION: The abdominal aorta has a normal caliber without dissection or aneurysm. There is mild atherosclerosis of the aorta and branching vessels. . * 2v CXR IMPRESSION: No acute cardiopulmonary process.. 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
[2018-07-18] MEDS ORDERED: NORCO 5/325 PO PRN (11:40)
[2018-07-18] MEDS ORDERED: NITROSTAT SL PRN (11:40)
[2018-07-18] MEDS ORDERED: TYLENOL PO PRN (11:42)
[2018-07-18] MEDS ORDERED: ZOFRAN IV PRN (11:42)
[2018-07-18] MEDS ORDERED: AMBIEN PO PRN (11:42)
[2018-07-18] MEDS ORDERED: HALDOL IV PRN (11:43)
[2018-07-18] MEDS ORDERED: ATIVAN IV PRN ×3 (11:43)
[2018-07-18] MEDS ORDERED: HABITROL TD PRN (12:00)
--- NOTE | 2018-07-18 12:03 | Consultation ---
History of Present Illness Consult date: 07/18/18 Consult reason: chest pain History of present illness: Patient is a 57 year old man with a history of ischemic cardiomyopathy, coronary artery disease and is status post PCI of the LAD 6 weeks ago. Patient reports he is followed by the [facility]. He presents to the emergency department with dizziness, noted with a low normal blood pressure. In addition, patient complained of chest pain thus this cardiac consultation. Patient admits he has been having abdominal pain, nausea, vomiting, diarrhea followed with chest pain for several days. Patient reports compliance with his medications, including plavix and aspirin. Chest x-ray is negative and a CTA scan of the chest reports no evidence of PE. His ECG is sinus rhythm with an occasional PVC. No acute ischemic changes. Medications and Allergies Allergies Allergy/AdvReac Type Severity Reaction Status Date / Time No Known Allergies Allergy Verified 04/23/18 22:22 Home Medications Medication Instructions Recorded Confirmed Last Taken Type amLODIPine [Norvasc] 10 mg PO DAILY 12/14/14 07/18/18 02/05/16 04:00 History dilTIAZem CD [Cardizem CD] 240 mg PO QDAY 05/28/18 07/18/18 Unknown History Aspirin [Aspirin BABY CHEW TAB] 81 mg PO QDAY #30 tab.chew 05/30/18 07/18/18 07/17/18 Rx AtorvaSTATin [Lipitor] 80 mg PO DAILY #30 tablet 05/30/18 07/18/18 07/17/18 Rx Clopidogrel [Plavix] 75 mg PO QDAY #30 tablet 05/30/18 07/18/18 07/17/18 Rx Famotidine [Pepcid] 20 mg PO BID #60 tablet 05/30/18 07/18/18 07/17/18 Rx HYDROcodone/APAP 5-325 [[place] 1 each PO Q4H PRN #12 tablet 05/30/18 07/18/18 Unknown Rx 5-325 mg TAB] ISOSORBIDE MONOnitrate [Imdur ER] 120 mg PO QDAY #30 tablet 05/30/18 07/18/18 07/17/18 Rx Lisinopril [Zestril TAB] 10 mg PO QDAY #30 tablet 05/30/18 07/18/18 07/17/18 Rx Metoprolol [Lopressor TAB] 12.5 mg PO BID #60 tablet 05/30/18 07/18/18 07/17/18 Rx Nitroglycerin [Nitrostat] 0.4 mg SL Q5M PRN #30 tab.subl 05/30/18 07/18/18 Unknown Rx Rosuvastatin Calcium [Crestor] 40 mg PO DAILY #30 tablet 05/30/18 07/18/18 Unknown Rx Active Meds: Active Medications Acetaminophen (Tylenol) 650 mg PO Q6H PRN PRN Reason: Non Cardiac Pain or Temp>100.5 Acetaminophen/Hydrocodone Bitart ([place] 5/325) 1 each PO Q4H PRN PRN Reason: Pain, Moderate (4-6) Aspirin (Baby Aspirin) 81 mg PO QDAY VADIM Clopidogrel Bisulfate (Plavix) 75 mg PO QDAY VADIM Famotidine (Pepcid) 20 mg PO BID VADIM Folic Acid (Folvite) 1 mg PO QDAY [facility]ADIM Haloperidol Lactate (Haldol) 5 mg IV Q1H PRN PRN Reason: Unrespon. to mult. doses BZD's Heparin Sodium (Porcine) (Heparin) 5,000 unit SUB-Q Q12HR [facility] Sodium Chloride (Nacl 0.9% 1000 Ml) 1,000 mls @ 100 mls/hr IV DIRECT VADIM Lorazepam (Ativan) 2 mg IV Q1H PRN PRN Reason: CIWA-Ar 8-15 Lorazepam (Ativan) 4 mg IV Q1H PRN PRN Reason: CIWA-Ar 16-25 Lorazepam (Ativan) 4 mg IV Q15MIN PRN PRN Reason: CIWA-Ar >25 Metoprolol Tartrate (Lopressor) 12.5 mg PO BID [facility] Miscellaneous Medication (Rosuvastatin Calcium [Crestor]) 40 mg PO QHS [facility] Nicotine (Habitrol) 14 mg TD QDAY PRN PRN Reason: Nicotine Cravings Nitroglycerin (Nitrostat) 0.4 mg SL Q5M PRN PRN Reason: Chest Pain Ondansetron HCl (Zofran) 4 mg IV Q4H PRN PRN Reason: Nausea And Vomiting Pantoprazole Sodium (Protonix) 40 mg PO QDAY [facility] Thiamine HCl (Vitamin B-1) 100 mg PO QDAY [facility] Zolpidem Tartrate (Ambien) 5 mg PO QHS PRN PRN Reason: Sleep Physical Examination Vital Signs Temp Pulse Resp BP Pulse Ox 98.0 F 92 H 18 109/86 98 07/17/18 22:46 07/17/18 22:46 07/17/18 22:46 07/17/18 22:46 07/17/18 22:46 General appearance: no acute distress HEENT: Positive: PERRL Neck: Positive: trachea midline Cardiac: Positive: Reg Rate and Rhythm Lungs: Positive: Decreased Breath Sounds Neuro: Positive: Grossly Intact Extremities: Absent: edema Results 07/17/18 22:59 07/17/18 22:59 Cardiac Enzymes 07/17/18 Range/Units 22:59 AST 135 H (5-40) units/L CBC 07/17/18 Range/Units 22:59 WBC 8.8 (4.5-11.0) K/mm3 RBC 3.59 L (3.65-5.03) M/mm3 Hgb 12.5 (11.8-15.2) gm/dl Hct 36.2 (35.5-45.6) % Plt Count 170 (140-440) K/mm3 Lymph # 3.6 (1.2-5.4) K/mm3 [place] # 0.5 (0.0-0.8) K/mm3 Eos # 0.1 (0.0-0.4) K/mm3 Baso # 0.1 (0.0-0.1) K/mm3 Comprehensive Metabolic Panel 07/17/18 Range/Units 22:59 Sodium 137 (137-145) mmol/L Potassium 3.6 (3.6-5.0) mmol/L Chloride 100.8 (98-107) mmol/L Carbon Dioxide 19 L (22-30) mmol/L BUN 6 L (9-20) mg/dL Creatinine 0.8 (0.8-1.5) mg/dL Glucose 100 (75-100) mg/dL Calcium 8.8 (8.4-10.2) mg/dL AST 135 H (5-40) units/L ALT 67 H (7-56) units/L Alkaline Phosphatase 142 H (35-129) units/L Total Protein 6.4 (6.3-8.2) g/dL Albumin 3.8 L (3.9-5) g/dL Assessment and Plan N/V/D Hx of CAD s/p PCI of the LAD using a drug eluting stent 05/2018 compliant with plavix and aspirin per pt Ischemic CMP Echocardiogram 05/2018 revealed a moderately decreased left ventricular systolic function, ejection fraction 35-40%. Hypertension Hyperlipidemia Recommend: Medical therapy for ischemic cardiomyopathy and coronary artery disease.
[2018-07-18] MEDS ORDERED: BABY ASPIRIN ONE (12:14)
[2018-07-18] MEDS ORDERED: PLAVIX ONE (12:15)
[2018-07-18] MEDS ORDERED: FOLVITE ONE (12:15)
[2018-07-18] MEDS ORDERED: PROTONIX PO ONE (12:16)
[2018-07-18] MEDS ORDERED: VITAMIN B-1 ONE (12:18)
[2018-07-18] MEDS: FOLVITE PO SCH (12:23)
[2018-07-18] MEDS: PLAVIX PO SCH (12:23)
[2018-07-18] MEDS: BABY ASPIRIN PO SCH (12:23)
[2018-07-18] MEDS: PROTONIX PO SCH (12:24)
[2018-07-18] MEDS: VITAMIN B-1 PO SCH (12:24)
[2018-07-18] MEDS: LOPRESSOR PO SCH (21:43)
[2018-07-18] MEDS: PEPCID PO SCH (21:43)
[2018-07-18] MEDS: NACL 0.9% 1000 ML 1,000 ML IV SCH (21:44)
[2018-07-18] MEDS ORDERED: NON-FORMULARY (Rosuvastatin Calcium [Crestor] 40 MG) PO SCH (22:00)
--- NOTE | 2018-07-18 23:14 | Ultrasound Report ---
PROCEDURE: US ABDOMEN LIMITED TECHNIQUE: Real-time sonography was performed of the liver with image documentation. HISTORY: Abdomen pain Elevated transamines COMPARISONS: None . FINDINGS: There are multiple cysts identified within the liver. There are multiple renal cysts identified in th e right kidney. No hydronephrosis. The echogenicity of the pancreas is normal. There has been previou s cholecystectomy. The common bile duct is normal and measures 5 mm. . IMPRESSION: Multiple cysts are identified within the liver. There are multiple right renal cortical cysts. No hydronephrosis. Previous cholecystectomy. Normal common bile duct at 5 mm. . This document is electronically signed by Carole Fragoso DO., July 18 2018 11:12:12 PM ET
[2018-07-19 05:59] LABS: Hematocrit 35.3 % (35.5-45.6); Hemoglobin 12.2 gm/dl (11.8-15.2); Mean Corpuscular HGB Conc 35 % (32-34); Mean Corpuscular Volume 99 fl (84-94); Platelet Count 123 K/mm3 (140-440); Red Blood Count 3.57 M/mm3 (3.65-5.03); Red Cell Distribution Width 14.2 % (13.2-15.2)
[2018-07-19 06:00] LABS: INR 1.08 (0.87-1.13)
[2018-07-19 06:01] LABS: Partial Thromboplastin Time 29.4 Sec. (24.2-36.6)
[2018-07-19 06:24] LABS: Alanine Aminotransferase 48 units/L (7-56); Albumin 3.7 g/dL (3.9-5); BUN/Creatinine Ratio 6; Blood Urea Nitrogen 4 mg/dL (9-20); Hemolysis Index 8
[2018-07-19] MEDS: NACL 0.9% 1000 ML 1,000 ML IV SCH (06:24)
--- NOTE | 2018-07-19 07:18 | Discharge Summary ---
Providers - Providers Date of Admission: 07/18/18 04:43 Date of discharge: 07/19/18 Attending physician: EDWARDO ARCHER 07/18/18 09:00 Consult to Physician [CONS] Routine Comment: Consulting Provider: GILLIAN WRIGHT Physician Instructions: Reason For Exam: Chest pain with recent LAD shent Primary care physician: [facility], Hospitalization Condition: Stable Hospital course: Patient is a 57 yo man with a history of GERD, tobacco dependency, alcohol abuse, dyslipidemia, hypertension and CAD s/p recent PCI with MARITA x 1 to the LAD here on 05/28/2018 who [facility] with severe intermittent sharp to dull left sided chest pains radiating to left arm associated with PHILLY, dizziness and low blood pressure without aggravating or relieving factors. His blood pressure was 74/53 when he checked. He is on 4 blood pressures medications since the Cardiac shent placed. He reports being compliant. There have been no change in blood pressure medications. He admits to unintentional weight loss of at least 40 lbs since the sudden unexpected of his son in April 2018 from brain aneurysm. He is not eating much, he admits to depression but denies SI/HI. He is using beer to cope with the loss. His last alcohol drink was Monday evening around 10pm. He denies alcohol withdrawal seizures. He declined mental health evaluation at this time. * CTA chest IMPRESSION: The aorta has a normal caliber without aneurysm or dissection. There is no evidence of pulmonary arterial emboli. The lungs are clear without infiltrate, effusion or pneumothorax. . * CTA abdomen IMPRESSION: The abdominal aorta has a normal caliber without dissection or aneurysm. There is mild atherosclerosis of the aorta and branch ing vessels. . * 2v CXR IMPRESSION: No acute cardiopulmonary process.. 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, h/o lap jose: abd Ultrasound showed liver and renal cyst, counseling done, he says he has been told about his liver before -Acidosis related to above -Tobacco dependency: children's counselor on stopping, offered nicotine patch -Alcohol abuse, last drink Monday 10pm: treat with CIWA protocol, thiamine, folate -Unintentional weight loss, most likely depression related: Offered help but he declined -Suspect Grief reaction with anxiety, [facility] DVT prophylaxis: sq heparin GI prophylaxis: protonix Home medications reconciled, stopped his imdur, lisinopril and Norvasc. Cardizem is listed but he is NOT on this med. Continued lopressor Full code Disposition: d/c home if ok with Cardiology, the hypotension has resolved, Disposition: TO HOME OR SELFCARE Time spent for discharge: 32 minutes Core Measure Documentation - Palliative Care Palliative Care/ Comfort Measures: Not Applicable - Core Measures Any of the following diagnoses?: none - VTE Discharge Requirements Deep Vein Thrombosis/Pulmonary Embolism Present on Admission: No Has pt received <5 days of overlap therapy or INR<2.0: No Anticoagulant overlap therapy prescribed at discharge: No Contraindication No Overlap Therapy order at DC: Not Indicated Exam - Physical Exam Narrative exam: Gen: cachetic, , NAD, Awake, Alert, Orientated HEENT: NCAT, sunken christianity muscle wasting, EOMI, PERRL, OP Clear Neck: supple, no adenopathy, no thyromegaly, no JVD CVS/Heart: RRR, normal S1S2, pulses present bilaterally Chest/Lungs: CTA B, Symmetrical chest expansion, good air entry bilaterally GI/Abdomen: soft, NTND, good bowel sounds, no guarding or rebound /Bladder: no suprapubic tenderness, no CVA or paraspinal tenderness Extermity/Skin: no c/c/e, no obvious rash MSK: FROM x 4 Neuro: CN 2-12 grossly intact, no new focal deficits Psych: sad, cried when asked about diet - Constitutional Vitals: Temp Pulse Resp BP Pulse Ox 98.5 F 69 18 143/103 97 07/19/18 04:05 07/19/18 04:05 07/19/18 04:05 07/19/18 04:05 07/19/18 04:05 Plan Activity: other (no strenous activity until cleared by PCP) Diet: low salt Special Instructions: record daily BP diary, smoking cessation Additional Instructions: See 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
[2018-07-19] MEDS ORDERED: MAGNESIUM SULFATE 2GM/50ML 2 GM/50 ML BAG IV ONE (08:30)
--- NOTE | 2018-07-19 09:13 | Progress Note ---
Assessment and Plan Epigastric pain associated with N/V/D Hypotension on admission Hx of CAD s/p PCI of the LAD using a drug eluting stent 05/2018 compliant with plavix and aspirin per pt Ischemic CMP Echocardiogram 05/2018 revealed a moderately decreased left ventricular systolic function, ejection fraction 35-40%. Hypertension Hyperlipidemia Recommend: Medical therapy for ischemic cardiomyopathy and coronary artery disease. Crestor held due to elevated LFTs. Stable cardiac aponte for discharge home today. Patient advised to f/u with his brine purifier at the [facility] within 1-2 weeks. Subjective Date of service: 07/19/18 Interval history: Patient reports he is feeling better. He denies nausea or vomiting overnight. He denies chest pain and shortness of breath. Objective Vital Signs Temp Pulse Resp BP BP Pulse Ox 07/19/18 08:00 20 07/19/18 04:05 98.5 F 69 18 143/103 97 07/19/18 01:01 62 07/18/18 23:33 98.5 F 69 12 145/99 99 07/18/18 21:43 82 137/97 07/18/18 20:03 98.8 F 78 20 137/97 100 07/18/18 19:31 98.1 F 76 16 146/99 98 07/18/18 19:30 98.2 F 88 18 138/99 100 07/18/18 17:00 98.6 F 79 17 131/93 100 07/18/18 16:00 98.2 F 69 18 136/98 98 07/18/18 11:00 98.2 F 76 20 132/98 98 - Physical Examination General: No Apparent Distress HEENT: Positive: PERRL Neck: Positive: trachea midline Cardiac: Positive: Reg Rate and Rhythm Lungs: Positive: Decreased Breath Sounds Neuro: Positive: Grossly Intact Extremities: Absent: edema - Labs and Meds Cardiac Enzymes 07/19/18 Range/Units 04:57 AST 80 H (5-40) units/L Coagulation 07/19/18 Range/Units 04:57 PT 14.7 (12.2-14.9) Sec. INR 1.08 (0.87-1.13) APTT 29.4 (24.2-36.6) Sec. CBC 07/19/18 Range/Units 04:57 WBC 7.0 (4.5-11.0) K/mm3 RBC 3.57 L (3.65-5.03) M/mm3 Hgb 12.2 (11.8-15.2) gm/dl Hct 35.3 L (35.5-45.6) % Plt Count 123 L (140-440) K/mm3 Comprehensive Metabolic Panel 07/19/18 Range/Units 04:57 Sodium 140 (137-145) mmol/L Potassium 3.6 (3.6-5.0) mmol/L Chloride 103.0 (98-107) mmol/L Carbon Dioxide 24 (22-30) mmol/L BUN 4 L (9-20) mg/dL Creatinine 0.7 L (0.8-1.5) mg/dL Glucose 88 (75-100) mg/dL Calcium 9.0 (8.4-10.2) mg/dL AST 80 H (5-40) units/L ALT 48 (7-56) units/L Alkaline Phosphatase 130 H (35-129) units/L Total Protein 6.2 L (6.3-8.2) g/dL Albumin 3.7 L (3.9-5) g/dL
[2018-07-19] MEDS ORDERED: ZOLOFT PO SCH (10:00)
[2018-07-19] MEDS: PEPCID PO SCH (10:05)
[2018-07-19] MEDS: VITAMIN B-1 PO SCH (10:06)
[2018-07-19] MEDS: PLAVIX PO SCH (10:06)
[2018-07-19] MEDS: FOLVITE PO SCH (10:06)
[2018-07-19] MEDS: LOPRESSOR PO SCH (10:06)
[2018-07-19] MEDS: PROTONIX PO SCH (10:07)
[2018-07-19] MEDS: BABY ASPIRIN PO SCH (10:07)
[2018-07-19] MEDS ORDERED: HEPARIN SUB-Q SCH (12:00)
[2018-07-19 13:37] VITALS: BP 141/105
== END 2018-07-19 16:10 | disposition home or self-care (01) ==
LOC: ED 22:36 → 4A 07-18 04:43
PROVIDERS: ADMIT Internal Medicine; ATTEND Internal Medicine
DX: R07.89 Other chest pain (principal); I95.9 Hypotension, unspecified; F10.10 Alcohol abuse, uncomplicated; R74.0 Nonspecific elevation of levels of transaminase and lactic acid dehydrogenase [LDH]; K21.9 Gastro-esophageal reflux disease without esophagitis; E78.5 Hyperlipidemia, unspecified; I10 Essential (primary) hypertension; I25.10 Atherosclerotic heart disease of native coronary artery without angina pectoris; R10.13 Epigastric pain; R11.2 Nausea with vomiting, unspecified; F17.210 Nicotine dependence, cigarettes, uncomplicated; Z79.899 Other long term (current) drug therapy; Z79.82 Long term (current) use of aspirin; Z98.890 Other specified postprocedural states; Z90.49 Acquired absence of other specified parts of digestive tract
CPT/HCPCS: 36415; 71046; 71275; 74175; 76705; 80053; 81001; 82150; 83690; 83735; 84484; 85025; 85027; 85610; 85730; 93005; 93010; 96361; 96365; 96366; 99291; G0378; J3475; J7030; J7040; Q9967

== ENCOUNTER 2018-11-27 10:30 | Emergency (ER) | payer OTHER ==
[2018-11-27] MEDS ORDERED: ZOFRAN IV ONE (10:59)
[2018-11-27] MEDS ORDERED: NACL 0.9% 500 ML 500 ML IV ONE (10:59)
[2018-11-27] MEDS ORDERED: SUBLIMAZE IV ONE (10:59)
[2018-11-27] MEDS ORDERED: ASPIRIN PO ONE (10:59)
--- NOTE | 2018-11-27 11:04 | Emergency Department Report ---
HPI - General Chief Complaint: Chest Pain Time Seen by Provider: 11/27/18 10:50 - HPI HPI: Room 18 The patient is a 58-year-old male presenting with a chief complaint of chest pain and syncope. The patient states he was walking after getting out of his car when he began to feel dizzy and he fell to the ground losing consciousness briefly. Patient states when he came to chest discomfort described as a pressure associated with diaphoresis. Patient admits to nausea/vomiting but denies shortness of breath or fever. Patient is to call productive of sputum for the past 3 weeks. Patient currently gets his pain score of 5.5/10 ED Past Medical Hx - Past Medical History Previous Medical History?: Yes Hx Hypertension: Yes Hx Heart Attack/AMI: Yes Hx GERD: Yes Additional medical history: high cholestrol. heart spasms - Surgical History Past Surgical History?: Yes Hx Coronary Stent: Yes Hx Open Heart Surgery: Yes Hx Cholecystectomy: Yes - Family History Family history: no significant - Social History Smoking Status: Current Every Day Smoker (1/2 pack per day) Substance Use Type: Alcohol (frequent) - Medications Home Medications: Home Medications Medication Instructions Recorded Confirmed Last Taken Type Aspirin [Aspirin BABY CHEW TAB] 81 mg PO QDAY #30 tab.chew 05/30/18 07/18/18 07/17/18 Rx Clopidogrel [Plavix] 75 mg PO QDAY #30 tablet 05/30/18 07/18/18 07/17/18 Rx Famotidine [Pepcid] 20 mg PO BID #60 tablet 05/30/18 07/18/18 07/17/18 Rx HYDROcodone/APAP 5-325 [[place] 1 each PO Q4H PRN #12 tablet 05/30/18 07/18/18 Unknown Rx 5-325 mg TAB] Metoprolol [Lopressor TAB] 12.5 mg PO BID #60 tablet 05/30/18 07/18/18 07/17/18 Rx Nitroglycerin [Nitrostat] 0.4 mg SL Q5M PRN #30 tab.subl 05/30/18 07/18/18 Unknown Rx Rosuvastatin Calcium [Crestor] 40 mg PO DAILY #30 tablet 05/30/18 07/18/18 Unknown Rx Folic Acid [Folvite] 1 mg PO QDAY #30 tablet 07/19/18 Unknown Rx Magnesium Oxide 400 mg PO TIDAC 5 Days #15 tablet 07/19/18 Unknown Rx Nicotine [Habitrol] 14 mg TD QDAY PRN #14 patch 07/19/18 Unknown Rx Pantoprazole [Protonix TAB] 40 mg PO QDAY #30 tablet 07/19/18 Unknown Rx Sertraline [Zoloft] 25 mg PO QDAY #30 tablet 07/19/18 Unknown Rx Thiamine [Vitamin B-1] 100 mg PO QDAY #30 tablet 07/19/18 Unknown Rx ED Review of Systems ROS: Stated complaint: CHEST PAIN Other details as noted in HPI Constitutional: diaphoresis Eyes: denies: eye pain ENT: denies: throat pain Respiratory: denies: shortness of breath Cardiovascular: chest pain Endocrine: no symptoms reported Gastrointestinal: nausea, vomiting. denies: abdominal pain Genitourinary: denies: dysuria Musculoskeletal: denies: back pain Neurological: denies: headache Physical Exam - Physical Exam Vital Signs: Vital Signs 11/27/18 10:44 Temperature 98.1 F Pulse Rate 66 Respiratory 12 Rate Blood Pressure 84/50 Blood Pressure 84/50 [Right] O2 Sat by Pulse 100 Oximetry Physical Exam: GENERAL: The patient is well-developed well-nourished male on a stretcher appearing to be in mild discomfort. [] HEENT: Normocephalic. Atraumatic. Extraocular motions are intact. Patient has moist mucous membranes. NECK: Supple. Trachea midline CHEST/LUNGS: Clear to auscultation. There is no respiratory distress noted. HEART/CARDIOVASCULAR: Regular. There is no tachycardia. There is no gallop rub or murmur. ABDOMEN: Abdomen is soft, nontender. Patient has normal bowel sounds. There is no abdominal distention. SKIN: There is no rash. There is no edema. There is no diaphoresis. NEURO: The patient is awake, alert, and oriented. The patient is cooperative. The patient has no focal neurologic deficits. The patient has normal speech MUSCULOSKELETAL: There is no evidence of acute injury. ED Course Vital Signs 11/27/18 10:44 Temperature 98.1 F Pulse Rate 66 Respiratory 12 Rate Blood Pressure 84/50 Blood Pressure 84/50 [Right] O2 Sat by Pulse 100 Oximetry ED Medical Decision Making - Lab Data Result diagrams: 11/27/18 11:06 11/27/18 11:06 Laboratory Tests 11/27/18 11/27/1811/27/19 11:06 11:06 11:06 WBC 6.1 RBC 3.93 Hgb 13.6 Hct 39.3 MCV 100 H MCH 35 H MCHC 35 H RDW 13.7 Plt Count 104 L Lymph % (Auto) 24.4 [place] % (Auto) 5.0 Eos % (Auto) 0.2 Baso % (Auto) 0.4 Lymph # 1.5 [place] # 0.3 Eos # 0.0 Baso # 0.0 Seg Neutrophils % 70.0 Seg Neutrophils # 4.3 PT 23.1 H INR 2.10 H APTT 49.0 H Sodium 141 Potassium 3.0 L Chloride 104.4 Carbon Dioxide 19 L Anion Gap 21 BUN 12 Creatinine 0.9 Estimated GFR > 60 BUN/Creatinine Ratio 13 Glucose 120 H Calcium 8.7 Total Bilirubin 1.60 H ALT 347 H Alkaline Phosphatase 150 H CK-MB (CK-2) 1.7 Troponin T < 0.010 NT-Pro-B Natriuret Pep 368.3 Total Protein 5.9 L Albumin 3.4 L Albumin/Globulin Ratio 1.4 Blood Type 11/27/18 11:06 WBC RBC Hgb Hct MCV MCH MCHC RDW Plt Count Lymph % (Auto) [place] % (Auto) Eos % (Auto) Baso % (Auto) Lymph # [place] # Eos # Baso # Seg Neutrophils % Seg Neutrophils # PT INR APTT Sodium Potassium Chloride Carbon Dioxide Anion Gap BUN Creatinine Estimated GFR BUN/Creatinine Ratio Glucose Calcium Total Bilirubin ALT Alkaline Phosphatase CK-MB (CK-2) Troponin T NT-Pro-B Natriuret Pep Total Protein Albumin Albumin/Globulin Ratio Blood Type A POSITIVE - EKG Data -: EKG Interpreted by Me EKG shows normal: sinus rhythm Rate: normal - EKG Data When compared to previous EKG there are: previous EKG unavailable Interpretation: other (prolonged QT) - Radiology Data Radiology results: report reviewed (chest x-ray), image reviewed (chest x-ray) interpreted by me: Chest x-ray-no focal infiltrates, no pneumothorax [facility] [address] [place] [address] XRay Report Signed Patient: BALA BAEZ JR MR#: [id number] : 1960 Acct:[id number] Age/Sex: 58 / M ADM Date: 11/27/18 Loc: ED Attending Dr: Ordering Physician: BETZY WASSERMAN MD Date of Service: 11/27/18 Procedure(s): XR chest 1V ap Accession Number(s): [id number] cc: BETZY WASSERMAN MD Fluoro Time In Minutes: CHEST 1 VIEW INDICATION: chest pain. COMPARISON: None available. Correlation is made to chest x-ray dated 07/17/2018 FINDINGS: Support devices: Single lead pacemaker terminates in the right ventricle. Heart: Within normal limits. Lungs/Pleura: There is an ill-defined opacity in the lateral right lung measuring 3.6 x 2.0 cm. This is adjacent to the right lateral fifth rib. The etiology of this is unclear. This was described as a healed right fifth rib fracture on the previous report. Consider further evaluation with CT chest with contrast. The remainder the lungs are clear. No pleural effusion or pneumothorax. Additional findings: None. IMPRESSION: No acute cardiopulmonary process. Ill-defined lung opacity in the lateral right lung as described. See above. Signer Name: Epi Yepez Jr, MD Signed: 11/27/2018 11:47 AM Workstation Name: [id number] Transcribed By: TTR Dictated By: EPI YEPEZ JR, MD Electronically Authenticated By: EPI YEPEZ JR, MD Signed Date/Time: 11/27/18 1147 DD/ 1143 TD/TT: - Differential Diagnosis dysrhythmia, ACS, pericarditis, GERD, Critical care attestation.: If time is entered above; I have spent that time in minutes in the direct care of this critically ill patient, excluding procedure time. ED Disposition Clinical Impression: Chest pain, Syncope, Prolonged QT interval Disposition: OP ADMIT IP TO THIS HOSP Is pt being admited?: Yes Does the pt Need Aspirin: Yes Condition: Fair Instructions: Chest Pain (ED), Syncope (ED) Time of Disposition: 12:15 (hospitalist paged (Dr Mahoney))
[2018-11-27 11:39] LABS: Basophils % (Auto) 0.4 % (0.0-1.8); Eosinophils % (Auto) 0.2 % (0.0-4.3); Hematocrit 39.3 % (35.5-45.6); Hemoglobin 13.6 gm/dl (11.8-15.2); Lymphocytes # (Auto) 1.5 K/mm3 (1.2-5.4); Lymphocytes % (Auto) 24.4 % (13.4-35.0); Mean Corpuscular HGB Conc 35 % (32-34); Mean Corpuscular Volume 100 fl (84-94); Monocytes # (Auto) 0.3 K/mm3 (0.0-0.8); Platelet Count 104 K/mm3 (140-440); Red Blood Count 3.93 M/mm3 (3.65-5.03); Red Cell Distribution Width 13.7 % (13.2-15.2)
[2018-11-27 11:48] LABS: INR 2.1 (0.87-1.13)
--- NOTE | 2018-11-27 11:51 | XRay Report ---
CHEST 1 VIEW INDICATION: chest pain. COMPARISON: None available. Correlation is made to chest x-ray dated 07/17/2018 FINDINGS: Support devices: Single lead pacemaker terminates in the right ventricle. Heart: Within normal limits. Lungs/Pleura: There is an ill-defined opacity in the lateral right lung measuring 3.6 x 2.0 cm. This is adjacent to the right lateral fifth rib. The etiology of this is unclear. This was described as a healed right fifth rib fracture on the previous report. Consider further evaluation with CT chest wit h contrast. The remainder the lungs are clear. No pleural effusion or pneumothorax. Additional findings: None. IMPRESSION: No acute cardiopulmonary process. Ill-defined lung opacity in the lateral right lung as described. S ee above. Signer Name: Epi Yepez Jr, MD Signed: 11/27/2018 11:47 AM Workstation Name: [id number]
[2018-11-27 11:59] LABS: Creatine Kinase MB 1.7 ng/mL (0.0-4.0)
[2018-11-27 12:01] LABS: Alanine Aminotransferase 347 units/L (7-56); Albumin 3.4 g/dL (3.9-5); BUN/Creatinine Ratio 13; Blood Urea Nitrogen 12 mg/dL (9-20); Calcium 8.7 mg/dL (8.4-10.2); Hemolysis Index 12
[2018-11-27] MEDS ORDERED: K-DUR PO ONE (12:12)
[2018-11-27] MEDS ORDERED: VITAMIN B-1 100 MG, FOLVITE 1 MG, INFUVITE 10 ML in NACL 0.9% 1000 ML 1,000 ML IV ONE (14:49)
[2018-11-27] MEDS ORDERED: NACL 0.9% 1000 ML 1,000 ML IV ONE (17:47)
[2018-11-28 06:53] VITALS: BP 113/64
== END 2018-11-27 20:00 | disposition admitted as inpatient to this hospital (09) ==
LOC: ED 10:30
DX: R55 Syncope and collapse (principal); R07.89 Other chest pain; I10 Essential (primary) hypertension; I25.2 Old myocardial infarction; K21.9 Gastro-esophageal reflux disease without esophagitis; E78.00 Pure hypercholesterolemia, unspecified; F17.210 Nicotine dependence, cigarettes, uncomplicated; Z95.1 Presence of aortocoronary bypass graft; Z79.82 Long term (current) use of aspirin; Z79.899 Other long term (current) drug therapy
CPT/HCPCS: 36415; 71045; 80053; 82550; 82553; 83880; 84484; 85025; 85610; 85730; 86850; 86900; 86901; 93005; 93010; 96361; 96365; 96366; 96375; 99285; J2405; J3010; J3411; J7030; J7040; 80320; G0480

== ENCOUNTER 2020-06-04 23:09 | Emergency (ER) | payer OTHER ==
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
[2020-06-05 01:28] VITALS: BP 123/89
[2020-06-05] MEDS ORDERED: ONDANSETRON 4 MG/2 ML INJ IV ONE (02:04)
[2020-06-05] MEDS ORDERED: FAMOTIDINE 20 MG/2 ML INJ IV ONE (02:04)
[2020-06-05] MEDS ORDERED: ALUM-MAG HYDROXIDE-SIMETHICONE 200-200-20MG/5ML ORAL LIQD 30 ML PO ONE (02:04)
[2020-06-05] MEDS ORDERED: LIDOCAINE VISCOUS 2% 15 ML ORAL LIQD PO ONE (02:04)
[2020-06-05] MEDS ORDERED: SODIUM CHLORIDE 0.9% 1000 ML 1,000 ML IV ONE (02:04)
[2020-06-05] MEDS ORDERED: DICYCLOMINE 20 MG/2 ML INJ IM ONE (02:05)
[2020-06-05 02:13] LABS: Basophils % (Auto) 0.7 % (0.0-1.8); Eosinophils # (Auto) 0.1 K/mm3 (0.0-0.4); Eosinophils % (Auto) 1.1 % (0.0-4.3); Hematocrit 37.7 % (35.5-45.6); Lymphocytes # (Auto) 1.5 K/mm3 (1.2-5.4); Lymphocytes % (Auto) 23.2 % (13.4-35.0); Mean Corpuscular HGB Conc 35 % (32-34); Mean Corpuscular Volume 104 fl (84-94); Monocytes # (Auto) 0.4 K/mm3 (0.0-0.8); Monocytes % (Auto) 6.2 % (0.0-7.3); Platelet Count 124 K/mm3 (140-440); Red Blood Count 3.64 M/mm3 (3.65-5.03); Red Cell Distribution Width 13.4 % (13.2-15.2)
[2020-06-05 02:17] LABS: Alanine Aminotransferase 24 units/L (7-56); Albumin 3.9 g/dL (3.9-5); Blood Urea Nitrogen 4 mg/dL (9-20); Calcium 8.6 mg/dL (8.4-10.2); Hemolysis Index 3
[2020-06-05 02:44] LABS: BUN/Creatinine Ratio 8
[2020-06-05 03:59] LABS: Bilirubin,Urine NEG (Negative); Blood,Urine NEG (Negative); Color,Urine Yellow (Yellow); Mucus,Urine FEW /HPF; Protein,Urine <15 mg/dL mg/dL (Negative); WBC,Urine < 1.0 /HPF (0.0-6.0)
--- NOTE | 2020-06-05 04:15 | Ultrasound Report ---
ULTRASOUND ABDOMEN, LIMITED (RIGHT UPPER QUADRANT) INDICATION: DIFFUSE upper abdominal pain. COMPARISON: None available. FINDINGS: Pancreas: Visualized portion shows no significant abnormality. Liver: Right hepatic cyst measuring 2.4 x 1.6 x 1.2 cm. Increased echogenicity diffusely. Gallbladder: Absent. Bile ducts: Normal. Common Bile Duct measures 1.3 mm. Free fluid: None. Additional Findings: None. IMPRESSION: 1. Fatty liver. 2. Right hepatic cyst. 3. Previous cholecystectomy. No biliary dilatation. Signer Name: Sage Lopez MD Signed: 06/05/2020 4:10 AM Workstation Name: [id number]
--- NOTE | 2020-06-05 05:59 | Cat Scan Report ---
CT ABDOMEN AND PELVIS WITH CONTRAST INDICATION / CLINICAL INFORMATION: Upper abdominal pain x 3 weeks, Pancreatitis evaluation. TECHNIQUE: Axial CT images were obtained through the abdomen and pelvis after Omnipaque 300, 100 cc I V contrast. All CT scans at this location are performed using CT dose reduction for ALARA by means o f automated exposure control. COMPARISON: None available. FINDINGS: LOWER CHEST: No significant abnormality. LIVER: Mild fatty infiltration of the liver. Benign-appearing cysts. GALLBLADDER: Surgically absent. BILE DUCTS: No significant abnormality. PANCREAS: Mild indistinctness in the region the pancreatic head suspected mild inflammation. Neck, lolly dy and tail are unremarkable. SPLEEN: No significant abnormality. ADRENALS: No significant abnormality. RIGHT KIDNEY / URETER: Mild chronic appearing inflammation. LEFT KIDNEY / URETER: No chronic appearing inflammation. STOMACH / SMALL BOWEL: Scattered air fluid diffusely without evidence of obstruction or significant t hickening. COLON: No significant abnormality. APPENDIX: No significant abnormality. PERITONEUM: No free fluid. No free air. No fluid collection. LYMPH NODES: No significant adenopathy. VASCULAR STRUCTURES: Atherosclerotic ectasia. URINARY BLADDER: No significant abnormality. REPRODUCTIVE ORGANS: No significant abnormality. ADDITIONAL FINDINGS: None. SKELETAL SYSTEM: No significant abnormality. IMPRESSION: 1. Suspected mild pancreatitis localized to head. 2. Fatty liver with benign-appearing cysts. 3. Scattered air and fluid within small bowel without evidence of obstruction. Signer Name: Sage Lopez MD Signed: 06/05/2020 5:55 AM Workstation Name: [id number]
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
== END 2020-06-05 03:40 | disposition home or self-care (01) ==
LOC: ED 23:09
DX: K85.20 Alcohol induced acute pancreatitis without necrosis or infection (principal); R10.13 Epigastric pain; R11.2 Nausea with vomiting, unspecified; I10 Essential (primary) hypertension; I25.2 Old myocardial infarction; F17.200 Nicotine dependence, unspecified, uncomplicated; Z90.49 Acquired absence of other specified parts of digestive tract; Z98.890 Other specified postprocedural states; Z79.899 Other long term (current) drug therapy
CPT/HCPCS: 36415; 74177; 76705; 80053; 81001; 83690; 84484; 85025; 96361; 96372; 96374; 96375; 99284; J0500; J2405; J7030; Q9967

== ENCOUNTER 2020-07-23 08:10 | Outpatient (CLI) | payer OTHER ==
--- NOTE | 2020-07-23 09:19 | XRay Report ---
Bilateral shoulders 6 views INDICATION: Shoulder pain FINDINGS: Glenohumeral joints appear normal bilaterally. No acute fracture dislocation. Mild AC degen erative change without significant encroachment. Scapula appears normal. IMPRESSION: No acute findings are seen in either shoulder Signer Name: Ambrose Nixon MD Signed: 07/23/2020 9:15 AM Workstation Name: [employer]
== END 2020-07-23 08:11 | disposition home or self-care (01) ==
LOC: XRAY 08:10
PROVIDERS: ATTEND Internal Medicine
DX: M19.011 Primary osteoarthritis, right shoulder (principal); M19.012 Primary osteoarthritis, left shoulder; I50.9 Heart failure, unspecified; F32.9 Major depressive disorder, single episode, unspecified

== ENCOUNTER 2021-04-19 04:49 | Emergency (ER) | payer BC, OTHER ==
--- NOTE | 2021-04-19 08:03 | Emergency Department Report ---
ED Abdominal Pain HPI - General Chief Complaint: Abdominal Pain Stated Complaint: ABD PAIN Time Seen by Provider: 04/19/21 07:12 Source: patient, family Mode of arrival: Ambulatory Limitations: No Limitations - History of Present Illness Initial Comments: 60-year-old -[place] male with a past medical history of alcohol abuse, recurrent pancreatitis, congestive heart failure, hypertension, CAD status post stent placement presents to the ER today with complaints of severe upper abdominal pain. Patient states that his pain started 2 days ago. He described as a constant achy pain which has been waxing and waning and sometimes radiates into his back. Reports associated nausea and vomiting. Last bowel movement was about 24 hours ago. He states that his bowel movement was loose but otherwise normal. He denies any fever, chills, chest pain, shortness of breath or swelling. Patient thinks that he may have flared up his pancreatitis by d rinking a beer 2 days ago. He states that prior to that he had had an alcoholic beverage for 3 months. Abdominal surgeries significant for hernia repair,and cholecystectomy. MD Complaint: abdominal pain -: days(s) (2) - Related Data Previous Rx's Medication Instructions Recorded Last Taken Type Aspirin [Aspirin BABY CHEW TAB] 81 mg PO QDAY #30 tab.chew 05/30/18 07/17/18 Rx Clopidogrel [Plavix] 75 mg PO QDAY #30 tablet 05/30/18 07/17/18 Rx Famotidine [Pepcid] 20 mg PO BID #60 tablet 05/30/18 07/17/18 Rx Metoprolol [Lopressor TAB] 12.5 mg PO BID #60 tablet 05/30/18 07/17/18 Rx Nitroglycerin [Nitrostat] 0.4 mg SL Q5M PRN #30 tab.subl 05/30/18 Unknown Rx Rosuvastatin Calcium [Crestor] 40 mg PO DAILY #30 tablet 05/30/18 Unknown Rx Folic Acid [Folvite] 1 mg PO QDAY #30 tablet 07/19/18 Unknown Rx Magnesium Oxide 400 mg PO TIDAC 5 Days #15 tablet 07/19/18 Unknown Rx Nicotine [Habitrol] 14 mg TD QDAY PRN #14 patch 07/19/18 Unknown Rx Pantoprazole [Protonix TAB] 40 mg PO QDAY #30 tablet 07/19/18 Unknown Rx Sertraline [Zoloft] 25 mg PO QDAY #30 tablet 07/19/18 Unknown Rx Thiamine [Vitamin B-1] 100 mg PO QDAY #30 tablet 07/19/18 Unknown Rx Folic Acid [Folvite] 1 mg PO QDAY #30 tablet 11/27/18 Unknown Rx Multivitamin [One Daily 1 each PO DAILY #30 tablet 11/27/18 Unknown Rx Multivitamin] Thiamine [Vitamin B-1] 100 mg PO QDAY #30 tablet 11/27/18 Unknown Rx Dicyclomine [Bentyl] 20 mg PO Q6H PRN #30 tablet 06/05/20 Unknown Rx Famotidine [Pepcid] 20 mg PO Q12H #60 tablet 06/05/20 Unknown Rx Ondansetron [Zofran ODT TAB] 4 mg PO Q6HR PRN #20 tab.rapdis 04/19/21 Unknown Rx oxyCODONE /ACETAMINOPHEN [Percocet 1 tab PO Q4HR #12 tab 04/19/21 Unknown Rx 5/325] Allergies Allergy/AdvReac Type Severity Reaction Status Date / Time No Known Allergies Allergy Verified 04/23/18 22:22 ED Review of Systems ROS: Stated complaint: ABD PAIN Other details as noted in HPI Comment: All other systems reviewed and negative Constitutional: denies: chills, fever Eyes: denies: eye pain, eye discharge, vision change ENT: denies: ear pain, throat pain, dental pain, hearing loss, epistaxis, congestion Respiratory: denies: cough, shortness of breath, wheezing Gastrointestinal: abdominal pain, nausea, vomiting. denies: diarrhea, co nstipation, hematemesis, hematochezia Genitourinary: denies: urgency, dysuria, frequency, hematuria, discharge, testicular pain, testicular mass Musculoskeletal: denies: back pain, joint swelling, arthralgia Skin: denies: rash, lesions, change in color, change in hair/nails, pruritus Neurological: denies: headache, weakness, numbness, paresthesias, confusion, abnormal gait, vertigo Psychiatric: denies: anxiety, depression, auditory hallucinations, visual hallucinations, homicidal thoughts, suicidal thoughts Hematological/Lymphatic: denies: easy bleeding, easy bruising, swollen glands ED Past Medical Hx - Past Medical History Previous Medical History?: Yes Hx Hypertension: Yes Hx CVA: No Hx Heart Attack/AMI: Yes Hx Congestive Heart Failure: No Hx Diabetes: No Hx Deep Vein Thrombosis: No Hx Pulmonary Embolism: No Hx GERD: Yes Hx Liver Disease: No Hx Renal Disease: No Hx Sickle Cell Disease: No Hx Arthritis: No Hx Headaches / Migraines: No Hx Seizures: No Hx Kidney Stones: No Hx Psychiatric Treatment: No Hx Asthma: No Hx COPD: No Hx Tuberculosis: No Hx Dementia: No Hx HIV: No Additional medical history: high cholestrol. heart spasms. PANCREATITIS - Surgical History Past Surgical History?: Yes Hx Coronary Stent: Yes Hx Open Heart Surgery: Yes Hx Pacemaker: No Hx Internal Defibrillator: Yes Hx Cholecystectomy: Yes Hx Appendectomy: No Hx Breast Surgery: No - Social History Smoking Status: Current Every Day Smoker Substance Use Type: Alcohol - Medications Home Medications: Home Medications Medication Instructions Recorded Confirmed Last Taken Type Aspirin [Aspirin BABY CHEW TAB] 81 mg PO QDAY #30 tab.chew 05/30/18 07/18/18 07/17/18 Rx Clopidogrel [Plavix] 75 mg PO QDAY #30 tablet 05/30/18 07/18/18 07/17/18 Rx Famotidine [Pepcid] 20 mg PO BID #60 tablet 05/30/18 07/18/18 07/17/18 Rx Metoprolol [Lopressor TAB] 12.5 mg PO BID #60 tablet 05/30/18 07/18/18 07/17/18 Rx Nitroglycerin [Nitrostat] 0.4 mg SL Q5M PRN #30 tab.subl 05/30/18 07/18/18 Unknown Rx Rosuvastatin Calcium [Crestor] 40 mg PO DAILY #30 tablet 05/30/18 07/18/18 Unknown Rx Folic Acid [Folvite] 1 mg PO QDAY #30 tablet 07/19/18 Unknown Rx Magnesium Oxide 400 mg PO TIDAC 5 Days #15 tablet 07/19/18 Unknown Rx Nicotine [Habitrol] 14 mg TD QDAY PRN #14 patch 07/19/18 Unknown Rx Pantoprazole [Protonix TAB] 40 mg PO QDAY #30 tablet 07/19/18 Unknown Rx Sertraline [Zoloft] 25 mg PO QDAY #30 tablet 07/19/18 Unknown Rx Thiamine [Vitamin B-1] 100 mg PO QDAY #30 tablet 07/19/18 Unknown Rx Folic Acid [Folvite] 1 mg PO QDAY #30 tablet 11/27/18 Unknown Rx Multivitamin [One Daily 1 each PO DAILY #30 tablet 11/27/18 Unknown Rx Multivitamin] Thiamine [Vitamin B-1] 100 mg PO QDAY #30 tablet 11/27/18 Unknown Rx Dicyclomine [Bentyl] 20 mg PO Q6H PRN #30 tablet 06/05/20 Unknown Rx Famotidine [Pepcid] 20 mg PO Q12H #60 tablet 06/05/20 Unknown Rx Ondansetron [Zofran ODT TAB] 4 mg PO Q6HR PRN #20 tab.rapdis 04/19/21 Unknown Rx oxyCODONE /ACETAMINOPHEN [Percocet 1 tab PO Q4HR #12 tab 04/19/21 Unknown Rx 5/325] ED Physical Exam - General Limitations: No Limitations General appearance: alert, in distress (mild secondary to pain ) - Head Head exam: Present: atraumatic, normocephalic, normal inspection - Eye Eye exam: Present: normal appearance, PERRL, EOMI Pupils: Present: normal accommodation - Neck Neck exam: Present: normal inspection, full ROM. Absent: meningismus - Respiratory Respiratory exam: Present: normal lung sounds bilaterally. Absent: respiratory distress, wheezes, rales, rhonchi - Cardiovascular Cardiovascular Exam: Present: regular rate, normal rhythm, normal heart sounds - GI/Abdominal GI/Abdominal exam: Present: soft, tenderness (diffuse upper abd with mild guarding ). Absent: distended - Neurological Exam Neurological exam: Present: alert, oriented X3, CN II-XII intact, normal gait - Psychiatric Psychiatric exam: Present: normal affect, normal mood - Skin Skin exam: Present: intact ED Course Vital Signs 04/19/21 04/19/21 06:52 12:41 Temperature 98.4 F 98.6 F Pulse Rate 61 65 Respiratory 18 16 Rate Blood Pressure 134/103 Blood Pressure 135/98 [Right] O2 Sat by Pulse 95 100 Oximetry ED Medical Decision Making - Lab Data Result diagrams: 04/19/21 07:28 04/19/21 07:28 Laboratory Tests 04/19/21 04/19/21 04/19/21 07:28 07:28 Unknown WBC 9.4 RBC 3.81 Hgb 12.1 Hct 36.9 MCV 97 H MCH 32 MCHC 33 RDW 14.7 Plt Count 166 Lymph % (Auto) 20.7 [place] % (Auto) 8.0 H Eos % (Auto) 1.8 Baso % (Auto) 0.3 Lymph # (Auto) 2.0 [place] # (Auto) 0.8 Eos # (Auto) 0.2 Baso # (Auto) 0.0 Seg Neutrophils % 69.2 Seg Neutrophils # 6.5 Sodium 141 Potassium 3.4 L Chloride 103.2 Carbon Dioxide 27 Anion Gap 14 BUN 3 L Creatinine 0.5 L Estimated GFR > 60 BUN/Creatinine Ratio 6 Glucose 98 Calcium 8.8 Total Bilirubin 0.60 AST 17 ALT 15 Alkaline Phosphatase 84 Total Protein 6.0 L Albumin 3.4 L Albumin/Globulin Ratio 1.3 Lipase 84 H Urine Color Yellow Urine Turbidity Clear Urine pH 6.0 Ur Specific [place] 1.044 H Urine Protein <15 mg/dl Urine Glucose (UA) Neg Urine Ketones Tr Urine Blood Neg Urine Nitrite Neg Urine Bilirubin Neg Urine Urobilinogen < 2.0 Ur Leukocyte Esterase Neg Urine WBC (Auto) 1.0 Urine RBC (Auto) 1.0 U Epithel Cells (Auto) 3.0 - Radiology Data Radiology results: report reviewed Patient: BALA BAEZ JR MR#: [id number] : 1960 Acct:[id number] Age/Sex: 60 / M ADM Date: 04/19/21 Loc: ED Attending Dr: Ordering Physician: MARY ROPER Date of Service: 04/19/21 Procedure(s): CT abdomen pelvis w con Accession Number(s): [id number] cc: MARY ROPER CT ABDOMEN AND PELVIS WITH CONTRAST INDICATION / CLINICAL INFORMATION: upper adb pain;hx of pancreatitis. Omni 300 100cc.. TECHNIQUE: Axial CT images were obtained through the abdomen and pelvis after 100 cc of Omnipaque 300 IV contrast. Sagittal and coronal reformatted images. All CT scans at this location are performed using CT dose reduction for ALARA by means of automated exposure control. COMPARISON: 06/05/2020 FINDINGS: LOWER CHEST: No significant abnormality. LIVER: Hepatic steatosis has improved significantly since the previous exam. There are multiple small liver cysts measuring up to 1.5 cm which appear unchanged. GALLBLADDER: Stable cholecystectomy changes BILE DUCTS: No significant abnormality. PANCREAS: Again there is mild fat stranding surrounding the pancreatic head suggesting acute pancreatitis. There appear to be multiple new hypodensities in the pancreatic head measuring up to 1.8 cm which may represent small pseudocysts. The distal pancreas is unremarkable. SPLEEN: No significant abnormality. ADRENALS: No significant abnormality. RIGHT KIDNEY and URETER: Stable scattered tiny cysts. No obstructive uropathy. LEFT KIDNEY and URETER: Stable scattered tiny cysts. No obstructive uropathy. STOMACH and SMALL BOWEL: No significant abnormality. COLON: No significant abnormality. APPENDIX: Not confidently identified. PERITONEUM: There is small pelvic ascites. No free air. No fluid collection. LYMPH NODES: No significant adenopathy. AORTA and ARTERIES: Moderate atherosclerotic calcification without acute abnormality. IVC and VEINS: No significant abnormality. URINARY BLADDER: No significant abnormality. REPRODUCTIVE ORGANS: No significant abnormality. ADDITIONAL FINDINGS: None. SKELETAL SYSTEM: No significant abnormality. IMPRESSION: Subtle inflammatory changes are suggesting surrounding the pancreatic head which could represent acute pancreatitis. Small cystic lesions are identified in the pancreatic head on today's exam which may represent interval pseudocyst formation. No obvious pancreatic mass. Improvement in hepatic steatosis. Stable scattered hepatic cysts. Stable cholecystectomy changes. Small pelvic ascites. Signer Name: Gamal Yepez Jr, MD Signed: 04/19/2021 10:34 AM Workstation Name: [id number] Transcribed By: TTR Dictated By: GAMAL YEPEZ JR, MD Electronically Authenticated By: GAMAL YEPEZ JR, MD Signed Date/Time: 04/19/21 1034 - Medical Decision Making CT abdomen pelvis showsSubtle inflammatory changes are suggesting surrounding the pancreatic head which could represent acute pancreatitis. Small cystic lesions are identified in the pancreatic head on today's exam which may represent interval pseudocyst formation. No obvious pancreatic mass. Improvement in hepatic steatosis. Stable scattered hepatic cysts. Stable cholecystectomy changes. Small pelvic ascites. Lipase only 85; LFTs normal; renal functions normal; white count is normal; H&H stable; UA normal; Patient vs stable. Discussed CT findings with patient. He states he feels better, his pain is now 6/10; He has not vomitted during stay; Offered admission, but patient states that he does not want to be admitted instead opted to try bowel rest with clear liquid diet at home for the next 24 to 48 hours, and pain medication and antiemetics. I discussed case discussed well as CT findings with Dr. Holcomb and as patient request for discharge with a trial at home of bowel rest , clear liquids and pain meds. He agreed with work up and plan of discharge. Patient will also be given referral information to PCP and GI specialist so he can follow-up hopefully this week or next week. Patient understands that if his symptoms at any point worsens despite bowel rest, clear liquid diet and m edications prescribed he needs to return immediately to the ER. Patient expressed understanding agree with plan. Patient stable at time of discharge. Critical care attestation.: If time is entered above; I have spent that time in minutes in the direct care of this critically ill patient, excluding procedure time. ED Disposition Clinical Impression: Acute pancreatitis Disposition: HOME / SELF CARE / HOMELESS Is pt being admited?: No Does the pt Need Aspirin: No Condition: Stable Instructions: Pancreatitis Eating Plan, Clear Liquid Diet, Adult, [id number] Additional Instructions: Take the percocet as prescribed to help with any pain. Take the Zofran to help with any nausea and vomiting. It is very important that you try avoid any alcohol intake. For the next 24 to 48 hours I do recommend that you do bowel rest and clear liquid diet. Example of clear liquid diet will be given to you on your d/c instructions. Return to ED if worse. Prescriptions: oxyCODONE /ACETAMINOPHEN [Percocet 5/325] 1 tab PO Q4HR #12 tab Ondansetron [Zofran ODT TAB] 4 mg PO Q6HR PRN #20 tab.rapdis PRN Reason: Nausea And Vomiting Referrals: PRIMARY CARE, [Primary Care Provider] - 3-5 Days [facility] [Provider Group] - 3-5 Days Time of Disposition: 11:09
[2021-04-19] MEDS ORDERED: MORPHINE 4 MG/1 ML INJ IV ONE (08:07)
[2021-04-19] MEDS ORDERED: SODIUM CHLORIDE 0.9% 1000 ML 1,000 ML IV ONE (08:07)
[2021-04-19] MEDS ORDERED: ONDANSETRON 4 MG/2 ML INJ IV ONE (08:07)
[2021-04-19 08:13] LABS: Basophils % (Auto) 0.3 % (0.0-1.8); Eosinophils # (Auto) 0.2 K/mm3 (0.0-0.4); Eosinophils % (Auto) 1.8 % (0.0-4.3); Hematocrit 36.9 % (35.5-45.6); Hemoglobin 12.1 gm/dl (11.8-15.2); Lymphocytes % (Auto) 20.7 % (13.4-35.0); Mean Corpuscular HGB Conc 33 % (32-34); Mean Corpuscular Volume 97 fl (84-94); Monocytes # (Auto) 0.8 K/mm3 (0.0-0.8); Platelet Count 166 K/mm3 (140-440); Red Blood Count 3.81 M/mm3 (3.65-5.03); Red Cell Distribution Width 14.7 % (13.2-15.2)
[2021-04-19 08:35] LABS: Alanine Aminotransferase 15 units/L (7-56); Albumin 3.4 g/dL (3.9-5); Blood Urea Nitrogen 3 mg/dL (9-20); Calcium 8.8 mg/dL (8.4-10.2); Hemolysis Index 7
[2021-04-19 09:38] LABS: BUN/Creatinine Ratio 6
--- NOTE | 2021-04-19 10:38 | Cat Scan Report ---
CT ABDOMEN AND PELVIS WITH CONTRAST INDICATION / CLINICAL INFORMATION: upper adb pain;hx of pancreatitis. Omni 300 100cc.. TECHNIQUE: Axial CT images were obtained through the abdomen and pelvis after 100 cc of Omnipaque 300 IV contras t. Sagittal and coronal reformatted images. All CT scans at this location are performed using CT dose reduction for ALARA by means of automated exposure control. COMPARISON: 06/05/2020 FINDINGS: LOWER CHEST: No significant abnormality. LIVER: Hepatic steatosis has improved significantly since the previous exam. There are multiple small liver cysts measuring up to 1.5 cm which appear unchanged. GALLBLADDER: Stable cholecystectomy changes BILE DUCTS: No significant abnormality. PANCREAS: Again there is mild fat stranding surrounding the pancreatic head suggesting acute pancreat itis. There appear to be multiple new hypodensities in the pancreatic head measuring up to 1.8 cm whi ch may represent small pseudocysts. The distal pancreas is unremarkable. SPLEEN: No significant abnormality. ADRENALS: No significant abnormality. RIGHT KIDNEY and URETER: Stable scattered tiny cysts. No obstructive uropathy. LEFT KIDNEY and URETER: Stable scattered tiny cysts. No obstructive uropathy. STOMACH and SMALL BOWEL: No significant abnormality. COLON: No significant abnormality. APPENDIX: Not confidently identified. PERITONEUM: There is small pelvic ascites. No free air. No fluid collection. LYMPH NODES: No significant adenopathy. AORTA and ARTERIES: Moderate atherosclerotic calcification without acute abnormality. IVC and VEINS: No significant abnormality. URINARY BLADDER: No significant abnormality. REPRODUCTIVE ORGANS: No significant abnormality. ADDITIONAL FINDINGS: None. SKELETAL SYSTEM: No significant abnormality. IMPRESSION: Subtle inflammatory changes are suggesting surrounding the pancreatic head which could represent acu te pancreatitis. Small cystic lesions are identified in the pancreatic head on today's exam which may represent interval pseudocyst formation. No obvious pancreatic mass. Improvement in hepatic steatosis. Stable scattered hepatic cysts. Stable cholecystectomy changes. Small pelvic ascites. Signer Name: Epi Yepez Jr, MD Signed: 04/19/2021 10:34 AM Workstation Name: [id number]
[2021-04-19] MEDS ORDERED: MORPHINE 4 MG/1 ML INJ ONE (11:33)
[2021-04-19 11:44] LABS: Bilirubin,Urine NEG (Negative); Blood,Urine NEG (Negative); Color,Urine Yellow (Yellow); Protein,Urine <15 mg/dL mg/dL (Negative); Urobilinogen,Urine < 2.0 mg/dL (<2.0)
[2021-04-19 12:44] VITALS: BP 135/98
== END 2021-04-19 12:44 | disposition home or self-care (01) ==
LOC: ED 04:49
DX: K85.90 Acute pancreatitis without necrosis or infection, unspecified (principal); I10 Essential (primary) hypertension; I21.9 Acute myocardial infarction, unspecified; K21.9 Gastro-esophageal reflux disease without esophagitis; F17.200 Nicotine dependence, unspecified, uncomplicated; Z90.49 Acquired absence of other specified parts of digestive tract; Z79.899 Other long term (current) drug therapy; Z98.890 Other specified postprocedural states
CPT/HCPCS: 36415; 74177; 80053; 81001; 83690; 85025; 96374; 96375; 99284; J2270; Q9967

== ENCOUNTER 2021-10-04 20:29 | Emergency (ER) | payer BC, OTHER ==
[2021-10-04 22:46] VITALS: BP 112/77
[2021-10-04 23:54] LABS: Basophils # (Auto) 0.1 K/mm3 (0.0-0.1); Basophils % (Auto) 0.5 % (0.0-1.8); Eosinophils # (Auto) 0.5 K/mm3 (0.0-0.4); Eosinophils % (Auto) 4.5 % (0.0-4.3); Hematocrit 41.2 % (35.5-45.6); Hemoglobin 13.7 gm/dl (11.8-15.2); Lymphocytes # (Auto) 2.7 K/mm3 (1.2-5.4); Mean Corpuscular HGB Conc 33 % (32-34); Mean Corpuscular Volume 94 fl (84-94); Monocytes # (Auto) 0.6 K/mm3 (0.0-0.8); Monocytes % (Auto) 6.2 % (0.0-7.3); Platelet Count 169 K/mm3 (140-440); Red Cell Distribution Width 17.5 % (13.2-15.2)
[2021-10-05 00:14] LABS: Alanine Aminotransferase 12 units/L (7-56); Albumin 4.1 g/dL (3.9-5); Blood Urea Nitrogen 7 mg/dL (9-20); Calcium 9.9 mg/dL (8.4-10.2); Hemolysis Index 69
[2021-10-05 00:21] LABS: BUN/Creatinine Ratio 14
[2021-10-05 00:55] LABS: Bilirubin,Urine NEG (Negative); Blood,Urine NEG (Negative); Color,Urine Amber (Yellow)
[2021-10-05 01:02] LABS: Mucus,Urine 2+ /HPF
== END 2021-10-05 23:59 | disposition left against medical advice (07) ==
LOC: ED 20:29
DX: R10.9 Unspecified abdominal pain (principal); Z53.21 Procedure and treatment not carried out due to patient leaving prior to being seen by health care provider
CPT/HCPCS: 36415; 80053; 81001; 83690; 85025